=== PATIENT | male | born 1970 | race Caucasian/White ===

== ENCOUNTER 2017-04-05 12:30 | Emergency (ER) | payer OTHER ==
[2017-04-05 12:34] VITALS: TEMP 98; BMI 25.7
[2017-04-05] MEDS ORDERED: diazePAM 5 MG TABLET PO ONE (13:10)
[2017-04-05] MEDS ORDERED: diazePAM 5 MG TABLET ONE (13:20)
--- NOTE | 2017-04-05 14:49 | PDOC ---
History of Present Illness - General History Source: Patient Exam Limitations: No Limitations - History of Present Illness Initial Comments: 04/05/17 14:50 The patient is a 47 year old male, with a significant past medical history of HTN, HLD, Gout, Renal transplant who presents to the emergency department with neck pain that began 2 days ago. Patient describes L lateral neck pain, that began few days ago that is exacerbated with movement. Patient was seen at [facility] 2 days ago for the same complaint. Patient had negative neck Xrays and was discharged with muscle relaxers. Patient returns to to [facility] ED due to increasing pain. Patient denies any new weakness or numbness. He denies chest pain, headache or dizziness. He denies fever, chills, abdominal pain, nausea, vomit, diarrhea or constipation. He denies dysuria, frequency, urgency or hematuria. Allergies: Shellfish Past surgical history: Hernia repair, testicular surgery, Kidney transplant Social history: None PCP: None <Mary Valadez - Last Filed: 04/05/17 14:49> - General History Source: Patient Exam Limitations: No Limitations <Viktoria Reich - Last Filed: 04/05/17 15:12> - General Chief Complaint: Pain Stated Complaint: BACK PAIN Past History <Mary Valadez - Last Filed: 04/05/17 14:49> - Past Medical History HTN: Yes Hypercholesterolemia: Yes Other medical history: GOUT - Surgical History Abdominal Surgery: Yes (HERNIA, TESTICULAR) - Psycho/Social/Smoking Cessation Hx Suicidal Ideation: No Smoking History: Never smoked Information on smoking cessation initiated: No <Viktoria Reich - Last Filed: 04/05/17 15:12> - Past Medical History Allergies/Adverse Reactions: Allergies Allergy/AdvReac Type Severity Reaction Status Date / Time shellfish derived Allergy Verified 04/05/17 12:35 Home Medications: Ambulatory Orders Amlodipine Besylate [Norvasc -] 30 mg PO DAILY 04/05/17 Atenolol [Tenormin -] 25 mg PO DAILY 04/05/17 Azathioprine [Imuran] 50 mg PO DAILY 04/05/17 Cyclosporine [Sandimmune] 150 mg PO BID 04/05/17 Diazepam [Valium] 5 mg PO Q8H PRN #15 tablet MDD 3 04/05/17 Methocarbamol 500 mg PO QID PRN 04/05/17 Oxycodone HCl/Acetaminophen [Percocet 5-325 mg Tablet] 1 tab PO Q4H 04/05/17 Prednisone 5 mg PO DAILY 04/05/17 Simvastatin 20 mg PO DAILY 04/05/17 Review of Systems - Review of Systems Able to Perform ROS?: Yes Comments:: 04/05/17 14:50 GENERAL/CONSTITUTIONAL: No fever or chills. No weakness. HEAD, EYES, EARS, NOSE AND THROAT: No change in vision. No ear pain or discharge. No sore throat. GASTROINTESTINAL: No nausea, vomiting, diarrhea or constipation. GENITOURINARY: No dysuria, frequency, or change in urination. CARDIOVASCULAR: No chest pain or shortness of breath. RESPIRATORY: No cough, wheezing, or hemoptysis. MUSCULOSKELETAL: No joint or muscle swelling or pain. + L neck pain. No back pain. SKIN: No rash NEUROLOGIC: No headache, vertigo, loss of consciousness, or change in strength/ sensation. ENDOCRINE: No increased thirst. No abnormal weight change. HEMATOLOGIC/LYMPHATIC: No anemia, easy bleeding, or history of blood clots. ALLERGIC/IMMUNOLOGIC: No hives or skin allergy. <Mary Valadez - Last Filed: 04/05/17 14:49> *Physical Exam - Vital Signs Last Vital Signs Temp Pulse Resp BP Pulse Ox 98 F 112 H 18 125/90 98 04/05/17 12:31 04/05/17 12:31 04/05/17 12:31 04/05/17 12:31 04/05/17 12:31 - Physical Exam Comments: 04/05/17 14:50 GENERAL: Awake, alert, and fully oriented, in no acute distress HEAD: No signs of trauma EYES: PERRLA, EOMI, sclera anicteric, conjunctiva clear ENT: Auricles normal inspection, nares patent, Moist mucosa NECK: Normal ROM, supple, no lymphadenopathy, JVD, or masses LUNGS: Breath sounds equal, clear to auscultation bilaterally. No wheezes, and no crackles HEART: Regular rate and rhythm, normal S1 and S2, no murmurs, rubs or gallops ABDOMEN: Soft, nontender, normoactive bowel sounds. No guarding, no rebound. No masses EXTREMITIES: Normal range of motion, no edema. No clubbing or cyanosis. No cords, erythema, or tenderness. +Midline tenderness. +Trapezius muscle spasm. +5 /5 muscle strength. NEUROLOGICAL: Normal speech SKIN: Warm, Dry, normal turgor, no rashes or lesions noted. <Mary Valadez - Last Filed: 04/05/17 14:49> - Vital Signs Last Vital Signs Temp Pulse Resp BP Pulse Ox 98 F 112 H 18 125/90 98 04/05/17 12:31 04/05/17 12:31 04/05/17 12:31 04/05/17 12:31 04/05/17 12:31 <Viktoria Reich - Last Filed: 04/05/17 15:12> ED Treatment Course - Medications Given in the ED: ED Medications Discontinued Medications Generic Name Dose Route Start Last Admin Trade Name Freq PRN Reason Stop Dose Admin Diazepam 5 mg 04/05/17 13:10 04/05/17 13:22 Valium - PO 04/05/17 13:11 5 mg ONCE ONE Administration Oxycodone/Acetaminophen 1 combo 04/05/17 13:09 04/05/17 13:22 Percocet 5/325 - PO 04/05/17 13:10 1 combo ONCE ONE Administration <Mary Valadez - Last Filed: 04/05/17 14:49> - Medications Given in the ED: ED Medications Discontinued Medications Generic Name Dose Route Start Last Admin Trade Name Freq PRN Reason Stop Dose Admin Diazepam 5 mg 04/05/17 13:10 04/05/17 13:22 Valium - PO 04/05/17 13:11 5 mg ONCE ONE Administration Oxycodone/Acetaminophen 1 combo 04/05/17 13:09 04/05/17 13:22 Percocet 5/325 - PO 04/05/17 13:10 1 combo ONCE ONE Administration <Viktoria Reich - Last Filed: 04/05/17 15:12> Medical Decision Making - Medical Decision Making 04/05/17 14:42 47 yo male with h/o renal transplant here with /co left upper neck pain. has had for few days. has had in the past. was seen at outside ed for evaluation. given muslce relaxer but pain has persisted. on exam left trapezial spasm, no midline cervical spine tendernss. nuerologically intact. 5/5 upper and lower body strength. sensation intact throught plan pain control and muscle relaxer. 04/05/17 15:00 pt feeling much improved after valium and percocet. was prescribed robaxin, will re prescribe valium and successful alleviation of sxs. given nuerology referrala nd requesting rheumatology so given to pt for unrelated foot complaint. <Viktoria Reich - Last Filed: 04/05/17 15:12> *DC/Admit/Observation/Transfer - Attestations Scribe Attestion: 04/05/17 14:50 Documentation prepared by Mary Valadez, acting as medical collections specialist for Viktoria Reich MD <Mary Valadez - Last Filed: 04/05/17 14:49> - Discharge Dispostion Admit: No <Viktoria Reich - Last Filed: 04/05/17 15:12> Diagnosis at time of Disposition: Torticollis - Discharge Dispostion Disposition: HOME Condition at time of disposition: Improved - Prescriptions Prescriptions: Diazepam [Valium] 5 mg PO Q8H PRN #15 tablet MDD 3 PRN Reason: Back Pain - Referrals Referrals: Omar Arias MD [Staff Physician] - Rob Montgomery MD [Staff Physician] - - Patient Instructions Printed Discharge Instructions: Torticollis Additional Instructions: you can take valium 5 mg every 8 hours as needed for muscle spasm. follow up with a neurologist. call to schedule. you can see Dr Arias. you can take percocet one every 6 hours as needed for pain. return for any weakness, numbness or any concerns. Should you need a referral for a hooker up. you can followup with Dr. Saucedo, see referral information.
[2017-04-05 15:30] VITALS: BP 121/76; PULSE 70
== END 2017-04-05 15:34 | disposition home or self-care (01) ==
LOC: JER 12:30
DX: M43.6 Torticollis (principal); I10 Essential (primary) hypertension; E78.00 Pure hypercholesterolemia, unspecified; M10.9 Gout, unspecified; Z94.0 Kidney transplant status
CPT/HCPCS: 99282-25

== ENCOUNTER 2018-05-25 06:00 | Inpatient (IN) | payer OTHER ==
--- NOTE | 2018-05-25 07:39 | PDOC ---
History of Present Illness - General History Source: Patient Exam Limitations: No Limitations - History of Present Illness Initial Comments: 05/25/18 08:27 The patient is a 48 year old male, with a significant PMH of gout and HTN, who presents to the emergency department complaining of a gout attack that began this morning. The patient states he has been having swelling and pain to the right arm for the past 3 to 4 days that progressively worsened today. The patient mentions he had a kidney transplant 20 years ago and thinks pain is secondary to his medication. He is currently taking Prednisone 20 mg twice a day for the past 3 days for the pain, last dose was taken last night. The patient states he has had gout in arm before. The patient denies chest pain, shortness of breath, headache and dizziness. Denies fever, chills, nausea, vomit, diarrhea and constipation. Denies dysuria, frequency, urgency and hematuria. Allergies: Shellfish Past surgical history: Kidney transplant Social history: None reported PCP: None reported <My Cross - Last Filed: 05/25/18 08:27> <Steve Walker - Last Filed: 05/25/18 11:05> - General Chief Complaint: Pain, Acute Stated Complaint: PAIN,RT HAND Time Seen by Provider: 05/25/18 07:39 Past History <My Cross - Last Filed: 05/25/18 08:27> - Past Medical History COPD: No HTN: Yes Hypercholesterolemia: Yes - Surgical History Abdominal Surgery: Yes (HERNIA, TESTICULAR) - Suicide/Smoking/Psychosocial Hx Smoking History: Never smoked Hx Alcohol Use: No Drug/Substance Use Hx: No <Steve Walker - Last Filed: 05/25/18 11:05> - Past Medical History Allergies/Adverse Reactions: Allergies Allergy/AdvReac Type Severity Reaction Status Date / Time shellfish derived Allergy Verified 04/05/17 12:35 Home Medications: Ambulatory Orders Azathioprine [Imuran] 50 mg PO DAILY 04/05/17 Cyclosporine [Sandimmune] 150 mg PO BID 04/05/17 Prednisone 5 mg PO DAILY 04/05/17 Nifedipine ER [Procardia Xl -] 30 mg PO DAILY 05/25/18 Review of Systems - Review of Systems Able to Perform ROS?: Yes Comments:: 05/25/18 08:30 CONSTITUTIONAL: No fever, no chills, no fatigue EYES: No visual changes ENT: No ear pain, no sore throat CARDIOVASCULAR: No chest pain, no palpitations RESPIRATORY: No cough, no SOB GI: No abdominal pain, no nausea, no vomiting, no constipation, no diarrhea GENITOURINARY: No dysuria, no frequency, no hematuria MUSKULOSKELETAL: +Right arm swelling. No backpain. SKIN: No rash NEURO: No headache <TayMy albert - Last Filed: 05/25/18 08:27> *Physical Exam - Vital Signs Last Vital Signs Temp Pulse Resp BP Pulse Ox 97.8 F 75 19 133/101 H 100 05/25/18 06:05 05/25/18 06:05 05/25/18 06:05 05/25/18 06:05 05/25/18 06:05 - Physical Exam Comments: 05/25/18 08:30 CONSTITUTIONAL: Well-appearing; well-nourished; in no apparent distress HEAD: Normocephalic; atraumatic EYES: PERRL; EOM intact ENMT: External appears normal; normal oropharynx NECK: Supple; non-tender; no cervical lymphadenopathy CARD: Normal S1, S2; no murmurs, rubs, or gallops RESP: Normal chest excursion with respiration; breath sounds clear and equal bilaterally; no wheezes, rhonchi, or rales ABD: Soft, non-distended; non-tender; no palpable organomegaly, no palpable hernias SKIN: Warm, dry, no rash NEURO: No focal neurological deficiencies. <Tay,My - Last Filed: 05/25/18 08:27> - Vital Signs Last Vital Signs Temp Pulse Resp BP Pulse Ox 97.8 F 75 19 133/101 H 100 05/25/18 06:05 05/25/18 06:05 05/25/18 06:05 05/25/18 06:05 05/25/18 06:05 - Physical Exam Comments: 05/25/18 09:10 EXTR: Right hand: + Approximately 2 cm in diameter fluctuant soft tissue swelling to the dorsal aspect of the hand, just distal to the wrist joint, with surrounding erythema, tender to palpation; there is tenderness along the extensor tendon sheaths with pain on passive and active flexion and extension of digits 2 through 5; there is lesser tenderness at the wrist joint with pain on wrist flexion/extension; there is no proximal lymphadenopathy or evidence of lymphangitis. <Steve Walker - Last Filed: 05/25/18 11:05> ED Treatment Course - LABORATORY CBC & Chemistry Diagram: 05/25/18 08:00 05/25/18 08:00 - Medications Given in the ED: ED Medications Discontinued Medications Generic Name Dose Route Start Last Admin Trade Name Rupert PRN Reason Stop Dose Admin Morphine Sulfate 6 mg 05/25/18 07:48 05/25/18 08:25 Morphine Sulfate IVPUSH 05/25/18 07:49 6 mg ONCE ONE Administration <My Cross - Last Filed: 05/25/18 08:27> - LABORATORY CBC & Chemistry Diagram: 05/25/18 08:00 05/25/18 08:00 <Steve Walker - Last Filed: 05/25/18 11:05> Medical Decision Making - Medical Decision Making 05/25/18 09:12 Patient is a 48-year-old male status post renal transplant with history of gout who presents with atraumatic pain and swelling of the right hand/wrist for the past several days not effectively treated with by mouth prednisone-40 mg for 3 days and cultures and taken shortly prior to arrival. Differential diagnoses includes extensor sheath tenosynovitis versus gouty arthritis versus septic arthritis. Dr. Tay of orthopedic surgery consulted. Needle aspiration of the soft tissue mass was attempted. No fluid or blood was aspirated. Small amount of bleeding occurred which was controlled with direct pressure. I suspect extensive tenia synovitis. We'll obtain blood cultures. We'll administer ceftriaxone vancomycin. Will admit. <Steve Walker - Last Filed: 05/25/18 11:05> *DC/Admit/Observation/Transfer - Attestations Scribe Attestion: 05/25/18 08:31 Documentation prepared by [employer], acting as medical transcriptionist for Steve Walker MD. <My Cross - Last Filed: 05/25/18 08:27> - Discharge Dispostion Decision to Admit order: Yes - Attestations Physician Attestion: 05/25/18 09:09 The documentation was prepared by the scribe under my direct supervision. I have reviewed the documentation which correctly represents the findings, medical decision-making and critical action taken by me. <Steve Walker - Last Filed: 05/25/18 11:05> Diagnosis at time of Disposition: Tenosynovitis of hand - Discharge Dispostion Condition at time of disposition: Fair - Referrals Referrals: Tatum Soliz MD [Primary Care Provider] - - Patient Instructions - Post Discharge Activity
[2018-05-25] MEDS ORDERED: morphine SULFATE 4 MG/ML VIAL IVPUSH ONE (07:48)
[2018-05-25] MEDS ORDERED: morphine SULFATE 4 MG/ML VIAL ONE (08:04)
[2018-05-25] MEDS ORDERED: MORPHINE SULFATE 2 MG/ML VIAL ONE (08:05)
[2018-05-25] MEDS ORDERED: CEFTRIAXONE 2,000 MG in DEXTROSE 5%-WATER - 50 ML IVPB ONE (08:29)
[2018-05-25] MEDS ORDERED: VANCOMYCIN 1,500 MG in DEXTROSE 5%-WATER - 500 ML IVPB ONE (08:29)
[2018-05-25 08:30] LABS: BASO % 0.8 % (0-2.0); EOS % 0.8 % (0-4.5); HEMATOCRIT 41.8 % (35.4-49); HEMOGLOBIN 13.8 GM/dL (11.7-16.9); LYMPH % 29.8 % (8-40); MCH 29.7 pg (25.7-33.7); MCHC 33.1 g/dl (32.0-35.9); MEAN CELL VOLUME 89.9 fl (80-96); MEAN PLT VOLUME 10.8 fl (7.5-11.1); MONO % 9.2 % (3.8-10.2); NEUT % 59.4 % (42.8-82.8); PLATELET COUNT 217 K/MM3 (134-434); RBC 4.65 M/mm3 (4.00-5.60); RDW 13.7 % (11.9-15.9); WHITE BLOOD COUNT 16.6 K/mm3 (4.0-10.0)
[2018-05-25 08:43] LABS: INR 1.03 (0.83-1.09); PROTHROMBIN TIME (PATIENT) 12.1 SEC (9.7-13.0)
[2018-05-25] MEDS ORDERED: CEFTRIAXONE 2 GM/100 ML BAG IVPB ONE (09:08)
[2018-05-25 09:22] LABS: ALBUMIN 3.4 g/dl (3.4-5.0); ALK PHOS 86 U/L (45-117); ANION GAP 8 MMOL/L (8-16); BILIRUBIN,TOTAL 0.5 mg/dL (0.2-1); BLOOD UREA NITROGEN 21 mg/dL (7-18); CALCIUM 8.8 mg/dL (8.5-10.1); CHLORIDE 104 mmol/L (98-107); CO2 29 mmol/L (21-32); CREATININE 1.5 mg/dL (0.55-1.3); GLUCOSE,RANDOM 81 mg/dL (74-106); POTASSIUM 3.8 mmol/L (3.5-5.1); SGOT/AST 11 U/L (15-37); SGPT/ALT 19 U/L (13-61); SODIUM 140 mmol/L (136-145); TOT PROT 7.6 g/dl (6.4-8.2); URIC ACID 9.2 mg/dL (2.6-7.2)
--- NOTE | 2018-05-25 09:42 | CONSULT ---
Consult - text type - Consultation Consultation Note: FULL CONSULT DICTATED IMP: CELLULITIS RIGHT WRIST WITH SWELLING BUT NO COLLECTION PLAN: IV ABX PER ID, ANTI GOUT MEDICATION, ICE AND ELEVATION
[2018-05-25 09:44] LABS: ERYTHROCYTE SEDIMENTATION RATE 95 mm/hr (0-10)
--- NOTE | 2018-05-25 10:28 | CONS ---
DATE OF CONSULTATION: 05/25/2018 ORTHOPEDIC CONSULTATION/[facility] HISTORY OF PRESENT ILLNESS: Patient is a 48-year-old male with significant past medical history for gout, hypertension, complaining of increased pain in his right wrist with swelling. Denies any recent fall or trauma. He has been placed on colchicine by his PMD and yet the pain got worse. PAST MEDICAL HISTORY: Significant for a renal transplant 20 years ago and is taking prednisone now for this inflammation in his wrist as well. PHYSICAL EXAMINATION: Extremities: He has a swelling on the dorsum of his right hand with surrounding erythema just distal to the carpometacarpal joints over the 3rd ray with increased pain with extension of his fingers. No lymphangitis. Full range of motion of the shoulder, elbow. No tenderness in the deep spaces in the hand or any tenderness on the palmar surface. The area is very, very sensitive. IMAGING: X-rays reveal no fracture-dislocation, lytic or blastic lesions. LABORATORY DATA: Systemic white count is 16.6. Sedimentation rate is 95. His uric acid is 9.2. IMPRESSION: Probable cellulitis, possible collection in his right hand. RECOMMENDATIONS: Under sterile conditions I aspirated out the swelling in his hand and got back no fluid whatsoever. I therefore recommend the patient be continued on antigout medication as well as IV antibiotics as per Infectious Disease and we will follow this closely over the next few days . EMELINA GRAY M.D. [id number]
[2018-05-25 10:33] LABS: ANISOCYTOSIS 3+; MACROCYTOSIS 0; PLATELET ESTIMATE NORMAL
[2018-05-25] MEDS ORDERED: MORPHINE SULFATE 2 MG/ML VIAL IVPUSH PRN (11:02)
--- NOTE | 2018-05-25 13:09 | HP ---
CHIEF COMPLAINT: hand pain. PCP: HISTORY OF PRESENT ILLNESS: 48 yo M with pmhx of renal transplant (on immunosupressive therapy) , gout and HTN presents with 4 day history of right hand pain. He describes constant 8/10 pressure-like pain on dorsum of right hand that can radiate up forearm. Pain is worse with palpation and movement. No alleviating factors. Accompanied by subjective fevers. He states that 4 days ago he started with some pain and swelling of right hand and he called his lean specialist (;[facility]) who gave him prednisone 20mg BID. He thought that this was gouty flare. He was instructed that if pain did not improve to come to ED, which he did. In ED he was given percocet with some relief and was seen by Dr. Tay who aspirated the hand with only serosanguinus return, no abdi pus. He has had this same problem in past treated with IV abx and resolved. Denies CP, LEVI, SOB, abdominal pain, chills, nausea or vomiting. ER course was notable for: (1)Hand XRAY shows- no fracture/sublux/free air/lytic or blastic lesions. (+) vascular calcifications. (2)CBC shows WBC 16.6 (3)ESR-95 Recent Travel: PAST MEDICAL HISTORY:HTN and GOUT PAST SURGICAL HISTORY: Renal tranplant ([facility]) Social History: Smoking:never Alcohol:denies Drugs: denies Family History: Allergies shellfish derived Allergy (Verified 04/05/17 12:35) HOME MEDICATIONS: Home Medications Medication Instructions Recorded Azathioprine [Imuran] 50 mg PO DAILY 04/05/17 Cyclosporine [Sandimmune] 150 mg PO BID 04/05/17 Prednisone 5 mg PO DAILY 04/05/17 Nifedipine ER [Procardia Xl -] 30 mg PO DAILY 05/25/18 REVIEW OF SYSTEMS CONSTITUTIONAL: Absent: fever, chills, diaphoresis, generalized weakness, malaise, loss of appetite, weight change HEENT: Absent: rhinorrhea, nasal congestion, throat pain, throat swelling, difficulty swallowing, mouth swelling, ear pain, eye pain, visual changes CARDIOVASCULAR: Absent: chest pain, syncope, palpitations, irregular heart rate, lightheadedness , peripheral edema RESPIRATORY: Absent: cough, shortness of breath, dyspnea with exertion, orthopnea, wheezing, stridor, hemoptysis GASTROINTESTINAL: Absent: abdominal pain, abdominal distension, nausea, vomiting, diarrhea, constipation, melena, hematochezia GENITOURINARY: Absent: dysuria, frequency, urgency, hesitancy, hematuria, flank pain, genital pain MUSCULOSKELETAL: R HAND pain and swelling. Absent: myalgia, arthralgia, joint swelling, back pain, neck pain SKIN: Absent: rash, itching, pallor HEMATOLOGIC/IMMUNOLOGIC: Absent: easy bleeding, easy bruising, lymphadenopathy, frequent infections ENDOCRINE: Absent: unexplained weight gain, unexplained weight loss, heat intolerance, cold intolerance NEUROLOGIC: Absent: headache, focal weakness or paresthesias, dizziness, unsteady gait, seizure, mental status changes, bladder or bowel incontinence PSYCHIATRIC: Absent: anxiety, depression, suicidal or homicidal ideation, hallucinations. PHYSICAL EXAMINATION Vital Signs - 24 hr 05/25/18 05/25/18 05/25/18 06:05 09:21 11:46 Temperature 97.8 F 98.9 F Pulse Rate 75 Pulse Rate [ 65 Radial] Respiratory 19 18 Rate Blood Pressure 133/101 H Blood Pressure 100/66 142/95 [Left Arm] O2 Sat by Pulse 100 99 Oximetry (%) GENERAL: AAOx3, NAD HEAD: NCAT EYES: PERRLA, EOMI, conjunctiva clear. No lid lag. EARS, NOSE, THROAT:Moist mucous membranes. NECK: Supple without lymphadenopathy, JVD, or masses. LUNGS: CTAB. No wheezes, and no crackles. No accessory muscle use. HEART:RRR, normal S1 and S2 without murmur, rub or gallop. ABDOMEN: Soft, NTND,NABS, large vertical scar RLQ from transpant. no guarding, no rebound, no masses. No hepatomegaly or splenomegaly. MUSCULOSKELETAL: decreased ROM of R wrist. very tender with wrist flexion. No CVA tenderness. UPPER EXTREMITIES: 2+ pulses, warm, well-perfused. Erythema and induration right hand 5x5 cm LOWER EXTREMITIES: 2+ pulses, warm, well-perfused. No calf tenderness. No peripheral edema. NEUROLOGICAL: Cranial nerves II-XII intact. Normal speech. gait not observed. PSYCHIATRIC: Cooperative. Good eye contact. Appropriate mood and affect. SKIN: right hand erythema and induration. Laboratory Results - last 24 hr 10/31/18 10/31/18 10/31/18 08:00 08:00 08:00 WBC 16.6 H RBC 4.65 Hgb 13.8 Hct 41.8 MCV 89.9 MCH 29.7 MCHC 33.1 RDW 13.7 Plt Count 217 MPV 10.8 Absolute Neuts (auto) 9.9 H Neutrophils % 59.4 Neutrophils % (Manual) 44.4 Band Neutrophils % 0.0 Lymphocytes % 29.8 Lymphocytes % (Manual) 36.4 Monocytes % 9.2 Monocytes % (Manual) 12 H Eosinophils % 0.8 Eosinophils % (Manual) 0.0 Basophils % 0.8 Basophils % (Manual) 1.0 Myelocytes % (Man) 0 Promyelocytes % (Man) 0 Blast Cells % (Manual) 0 Nucleated RBC % 0 Metamyelocytes 0 Hypochromia 0 Platelet Estimate Normal Polychromasia 0 Poikilocytosis 0 Anisocytosis 3+ Microcytosis 3+ Macrocytosis 0 ESR 95 H PT with INR 12.10 INR 1.03 Sodium 140 Potassium 3.8 Chloride 104 Carbon Dioxide 29 Anion Gap 8 BUN 21 H Creatinine 1.5 H Creat Clearance w eGFR 50.38 Random Glucose 81 Uric Acid 9.2 H Calcium 8.8 Total Bilirubin 0.5 AST 11 L ALT 19 Alkaline Phosphatase 86 C-Reactive Protein 1.3 H Total Protein 7.6 Albumin 3.4 ASSESSMENT/PLAN: 48 yo M with pmhx of renal transplant (on immunosupressive therapy) , gout and HTN presents with 4 day history of right hand pain, admitted to med-surg for infective tenosynovitis requiring IV abx. Problem List - Problem (1) Tenosynovitis of hand Assessment/Plan: * Given Rocephin and Vanco in ED * will consult ID * possible need for further imaging. * Pending C/S from aspirate. * Repeat CBC in AM (2) S/P kidney transplant Assessment/Plan: Followed by transplant specialist in [facility] Dr. Fisher * Will continue immunosupressive therapy. * Azathioprine (Imuran -) 50 mg PO DAILY * Cyclosporine (Sandimmune) 150 mg PO BID * Prednisone (Deltasone -) 5 mg PO DAILY (3) HTN (hypertension) Assessment/Plan: Will continue home medications. * Cont. Nocardia. Visit type - Emergency Visit Emergency Visit: Yes ED Registration Date: 05/25/18 Care time: The patient presented to the Emergency Department on the above date and was hospitalized for further evaluation of their emergent condition. - New Patient This patient is new to me today: Yes Date on this admission: 05/25/18 - Critical Care Critical Care patient: No
[2018-05-25 13:12] VITALS: BMI 26.7
[2018-05-25] MEDS ORDERED: PNEUMOC 13-VAL CONJ-DIP CRM/PF 0.5 ML DISP.SYRIN IM ONE (13:45)
[2018-05-25] MEDS ORDERED: ACETAMINOPHEN 325 MG TABLET (FP) PO ONE (13:45)
[2018-05-25] MEDS ORDERED: oxyCODONE HCL 5 MG TABLET PO ONE (13:45)
[2018-05-25] MEDS ORDERED: predniSONE 20 MG TABLET (UD) PO ONE (16:27)
--- NOTE | 2018-05-25 16:29 | PN ---
Teaching Attending Note Name of Resident: Robbi Bailon ATTENDING PHYSICIAN STATEMENT I saw and evaluated the patient. I reviewed the resident's note and discussed the case with the resident. I agree with the resident's findings and plan as documented. SUBJECTIVE:48yo M with PMH s/p renal transplant 1997 on immunosupressant therapy , HTN and gout presented to the Er with R wrist pain. pain has been progressing and worsens with movement. subjective chills. called his mental retardation aide who recommended take pred 20mg BID for 3 days. felt some improvement but was not back to baseline. Took a dose of colchicine today. states he typically takes pred 20mg when he feels his joint are acting up with relief. has never responded to colchicine. denies Cp, SOB, night sweats, N/V/C/D has frequent flares 6-8/year which respond to steroids. saw a officer lieutenant in [place] in the past who gave him steroids but never followed up. OBJECTIVE: Last Vital Signs Temp Pulse Resp BP Pulse Ox 98.4 F 67 18 119/68 99 05/25/18 13:51 05/25/18 13:51 05/25/18 12:53 05/25/18 13:51 05/25/18 12:53 General NAD CV S1 S2 RRR no murmur/rub/gallops Lungs CTA B/L no wheezing/rales/rhonchi extremities R wrist dorsum is erythematous, warm and tender. refused passive ROM. unable to flex or extend the wrist. able to move all the joints, pulse intact. no other joints appears swollen at this itme ASSESSMENT AND PLAN: 48yo M with H s/p renal transplant 1997 on immunosupressant therapy, HTN and gout presented to the Er with R wrist pain. 1. R wrist pain- liekly gout. low suspicion for infection however due to immunosupressed state. Elevated Uric acid level. s/p joint aspiration of the wrist by Ortho who sent fluid off for analysis. Will give pred 40mg po daily x3 days. no response to colchicine. allopurinol dose interfere with immunosupressant medications and would need to verify with transplant doctor if can give after acute flare has ended as would benefit form urate lowering therapy. would empiric treatment for infection with leukocytosis (although this could be from steroid use). started on Vanco and Ceftriaxone. f/u Cx and fluid 2. HTN-controlled. cont home medications 3. 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 on immunosupressant therapy. nephro consult 4. DVT ppx- Hep sq
--- NOTE | 2018-05-25 16:33 | CON.ID ---
Consult Consult Specialty:: infectious disease Referred by:: hospitalist Reason for Consultation:: swelling right hand with pain - History of Present Illness Chief Complaint: pain and swelling right hand History of Present Illness: 48 yo man with history of renal transplant [address] [place], 8 years of gout he has been hospitalized 6 times in the last 8 yrs for gout usually his right knee, right ankle and right wrist he takes takes 20 mg prednisone and drinks alot of water when he feels like he is going to get a gout attack this usually works this happens every other month reports colchicine does not work for him no fevers, no trauma, no insect bites no travel no pets monagomous lives with and mother has not been able to work due to gout attacks s/p vancomycin and ceftriaxone in the ED this am - History Source History Provided By: Patient, Medical Record Limitations to Obtaining History: No Limitations - Past Medical History Cardio/Vascular: Yes: HTN Renal/: Yes: Other (history testicular torsion age 12) Rheumatology: Yes: Gout - Past Surgical History Past Surgical History: Yes: Hernia Repair, Kidney Transplant - Alcohol/Substance Use Hx Alcohol Use: No - Smoking History Smoking history: Never smoked - Social History Usual Living Arrangement: With Spouse ADL: Independent Place of : Other History of Recent Travel: Yes ( two months ago) Home Medications - Allergies Allergies/Adverse Reactions: Allergies Allergy/AdvReac Type Severity Reaction Status Date / Time shellfish derived Allergy Verified 04/05/17 12:35 - Home Medications Home Medications: Ambulatory Orders Azathioprine [Imuran] 50 mg PO DAILY 04/05/17 Cyclosporine [Sandimmune] 150 mg PO BID 04/05/17 Prednisone 5 mg PO DAILY 04/05/17 Nifedipine ER [Procardia Xl -] 30 mg PO DAILY 05/25/18 Family Disease History - Family Disease History Family History: Denies Review of Systems - Review of Systems Constitutional: reports: No Symptoms. denies: Fever Eyes: reports: No Symptoms HENT: reports: No Symptoms Neck: reports: No Symptoms Cardiovascular: reports: No Symptoms Respiratory: reports: No Symptoms Gastrointestinal: reports: No Symptoms Genitourinary: reports: No Symptoms Musculoskeletal: reports: Extremity Pain (right hand) Physical Exam Vital Signs: Vital Signs Temperature 98.4 F 05/25/18 13:51 Pulse Rate 67 05/25/18 13:51 Respiratory Rate 18 05/25/18 12:53 Blood Pressure 119/68 05/25/18 13:51 O2 Sat by Pulse Oximetry (%) 99 05/25/18 12:53 Constitutional: Yes: No Distress, Calm Eyes: Yes: Conjunctiva Clear, EOM Intact HENT: Yes: Atraumatic, Normocephalic. No: Thrush Neck: Yes: Supple, Trachea Midline Cardiovascular: Yes: Regular Rate and Rhythm Respiratory: Yes: Regular, CTA Bilaterally Gastrointestinal: Yes: Normal Bowel Sounds, Soft, Other (scr from renal transplant) ...Rectal Exam: Yes: Deferred Musculoskeletal: Yes: WNL Extremities: Yes: Other (right hand with swelling on the dorsum of the hand, decreased ROM of the fingers, mild erythema no lymphangetic spread, no axillary adenopathy small effusions both knees, and left ankle -nontender, no erythema) Psychiatric: Yes: Alert, Oriented Labs: CBC, BMP 05/25/18 08:00 05/25/18 08:00 blood cultures pending Laboratory Tests 05/25/18 08:00 Uric Acid 9.2 H Imaging - Results X-ray: Report Reviewed Problem List - Problems (1) Swelling of right hand Code(s): M79.89 - OTHER SPECIFIED SOFT TISSUE DISORDERS (2) S/P kidney transplant Code(s): Z94.0 - KIDNEY TRANSPLANT STATUS (3) History of gout Code(s): Z87.39 - PERSONAL HISTORY OF DISEASES OF THE MS SYS AND CONN TISS Assessment/Plan Immunocompromised host secondary to renal transplant suspect this is gout- he feels this is very typical for his prior episodes he received vanco/rocephin no history of MDRO he does not look toxic would continue rocephin, f/u blood cultures vancomycin trough in am urine gc/chlamydia NAAT consider rheumatology evaluation baseline creatinine is 1.5- s/p transplant- renal evaluation pending
[2018-05-25] MEDS ORDERED: azaTHIOprine 50 MG TABLET PO ONE (17:44)
--- NOTE | 2018-05-25 19:28 | CON.NEP ---
Consult Consult Specialty:: nephrology Referred by:: dr gonzalez Reason for Consultation:: azotemia / renal transplant - History of Present Illness Chief Complaint: right wrist pain and swelling History of Present Illness: esrd s/p renal transplant [address] [place] s creat is 1.4-1.5 c/o pain and swelling in right wrsit which is hot and warm to touch he recognizes this as a typical gouty attack as he has had in the past he gets recurrent attack he was treated with abx in er and arthrocentesis has been done serum creatine is 1.5 it is at his baseline - Past Medical History Cardio/Vascular: Yes: HTN Renal/: Yes: Other (history testicular torsion age 12) Rheumatology: Yes: Gout - Past Surgical History Past Surgical History: Yes: Hernia Repair, Kidney Transplant - Alcohol/Substance Use Hx Alcohol Use: No - Smoking History Smoking history: Never smoked - Social History Usual Living Arrangement: With Spouse ADL: Independent History of Recent Travel: Yes ( two months ago) Home Medications - Allergies Allergies/Adverse Reactions: Allergies Allergy/AdvReac Type Severity Reaction Status Date / Time shellfish derived Allergy Verified 04/05/17 12:35 - Home Medications Home Medications: Ambulatory Orders Azathioprine [Imuran] 50 mg PO DAILY 04/05/17 Cyclosporine [Sandimmune] 150 mg PO BID 04/05/17 Prednisone 5 mg PO DAILY 04/05/17 Nifedipine ER [Procardia Xl -] 30 mg PO DAILY 05/25/18 Nephrology Consult - Height Height: 5 ft 11 in - Weight Weight: 192 lb - BMI Body Mass Index (BMI): 26.7 - Lab Results CBC,BMP: CBC, BMP 05/25/18 08:00 05/25/18 08:00 Anion Gap: Anion Gap Anion Gap 8 MMOL/L (8-16) 05/25/18 08:00 - Physical Examination Vital Signs: Vital Signs Temperature 98.4 F 05/25/18 13:51 Pulse Rate 67 05/25/18 13:51 Respiratory Rate 18 05/25/18 12:53 Blood Pressure 119/68 05/25/18 13:51 O2 Sat by Pulse Oximetry (%) 99 05/25/18 12:53 Constitutional: Yes: Well Nourished, Obese Eyes: Yes: WNL, Conjunctiva Clear, EOM Intact HENT: Yes: WNL, Atraumatic, Normocephalic Neck: Yes: WNL, Supple, Trachea Midline Cardiovascular: Yes: WNL, Regular Rate and Rhythm Respiratory: Yes: WNL, Regular, CTA Bilaterally Gastrointestinal: Yes: WNL, Normal Bowel Sounds Renal/: Yes: WNL Musculoskeletal: Yes: Joint Swelling Extremities: Yes: Erythema Edema: No Peripheral Pulses WNL: No Neurological: Yes: WNL Psychiatric: Yes: WNL Assessment/Plan acute inflammtory arthritis probably acute gout, given the history of previous similar episodes s/p kidney transplant renal function is stab'e ensure hidration continue anti rejection regimen
[2018-05-25] MEDS: HEPARIN NA (PORCINE) 5,000 UNITS/ML 1ML VIAL SQ SCH (22:12)
[2018-05-26 07:18] LABS: BASO % 1.2 % (0-2.0); HEMATOCRIT 41.8 % (35.4-49); HEMOGLOBIN 13.6 GM/dL (11.7-16.9); LYMPH % 16.7 % (8-40); MCH 29.2 pg (25.7-33.7); MCHC 32.4 g/dl (32.0-35.9); MEAN CELL VOLUME 89.9 fl (80-96); MEAN PLT VOLUME 10.9 fl (7.5-11.1); MONO % 7.5 % (3.8-10.2); NEUT % 74.6 % (42.8-82.8); PLATELET COUNT 222 K/MM3 (134-434); RBC 4.65 M/mm3 (4.00-5.60); RDW 13.3 % (11.9-15.9); WHITE BLOOD COUNT 16.4 K/mm3 (4.0-10.0)
[2018-05-26 07:59] LABS: ALBUMIN 3.2 g/dl (3.4-5.0); ALK PHOS 87 U/L (45-117); ANION GAP 14 MMOL/L (8-16); BILIRUBIN,TOTAL 0.9 mg/dL (0.2-1); BLOOD UREA NITROGEN 25 mg/dL (7-18); CALCIUM 8.9 mg/dL (8.5-10.1); CHLORIDE 101 mmol/L (98-107); CO2 21 mmol/L (21-32); CREATININE 1.6 mg/dL (0.55-1.3); GLUCOSE,RANDOM 103 mg/dL (74-106); MAGNESIUM 1.9 mg/dL (1.8-2.4); POTASSIUM 4.8 mmol/L (3.5-5.1); SGOT/AST 11 U/L (15-37); SGPT/ALT 16 U/L (13-61); SODIUM 136 mmol/L (136-145); TOT PROT 7.6 g/dl (6.4-8.2)
[2018-05-26] MEDS ORDERED: SODIUM CHLORIDE 1,000 ML IV SCH (08:15)
[2018-05-26] MEDS ORDERED: predniSONE 5 MG TABLET (UD) PO SCH (10:00)
--- NOTE | 2018-05-26 10:40 | PN ---
Progress Note (short form) - Note Progress Note: Pt seen and examined. He states he is a 48 year old right hand dom male with a + h/o gout. He has had it in the hands and wrists before, and this feels the same as those acute gouty attacks. He has an acute attack every 8 months or so. He is not on maintenance meds. He denies recent trauma. Good urine output, not dehydrated. Doesn't eat red meat, or intake excessive ETOH. He states that he dramatically improved over the past 24 hours, with much improved swelling, ROM, and pain. PE Right hand and wrist still moderately swollen. Still with mild erythema. Right hand, wrist, fingers are all warm/hot. Only mildly tender to palpation, more so over dorsum of right hand. NVI. ` No fluid collection appreciated. No drainage. + still with global stiffness Labs WBC down slightly to 16.4 ESR 95 CRP 1.3 AVSS Wrist aspirate (very little fluid) no growth so far Xrays Right hand and wrist are normal. Imp Acute gouty attack, right hand and wrist, now much improved. Rec Continue antibiotic prophylaxis, and NSAIDS. Elevation. Can start to force active and passive ROM of the right wrist, fingers, thumb, hand. Will follow.
[2018-05-26] MEDS ORDERED: PT OWN MED DRAWER 7, Y5N ONE (11:14)
[2018-05-26] MEDS ORDERED: DEXTROSE 5%-WATER 100 ML IVPB ONE (11:19)
[2018-05-26] MEDS: HEPARIN NA (PORCINE) 5,000 UNITS/ML 1ML VIAL SQ SCH ×2 (11:25→21:51)
[2018-05-26] MEDS: NIFEdipine E.R. 30 MG TABLET (FP) PO SCH (11:25)
[2018-05-26] MEDS: predniSONE 20 MG TABLET (UD) PO SCH (11:25)
[2018-05-26] MEDS: azaTHIOprine 50 MG TABLET PO SCH (11:25)
[2018-05-26] MEDS: CEFTRIAXONE 2 GM in DEXTROSE 5%-WATER 100 ML IVPB SCH (11:26)
--- NOTE | 2018-05-26 12:59 | PN ---
Progress Note, Physician History of Present Illness: Pt seen and examined at bedside. He feels that his hand is getting better. He denies shortness of breath. He denies dysuria or hematuria. - Current Medication List Current Medications: Active Medications Azathioprine (Imuran -) 50 mg PO DAILY [facility] Last Admin: 05/26/18 11:25 Dose: 50 mg Cyclosporine 50 mg/ (Cyclosporine 100 mg) 150 mg PO BID [facility] Heparin Sodium (Porcine) (Heparin -) 5,000 unit SQ BID [facility] Last Admin: 05/26/18 11:25 Dose: 5,000 unit Ceftriaxone Sodium 2 gm/ (Dextrose) 100 mls @ 200 mls/hr IVPB DAILY [facility]; Protocol Last Admin: 05/26/18 11:26 Dose: 200 mls/hr Sodium Chloride (Normal Saline -) 1,000 mls @ 50 mls/hr IV ASDIR [facility] Stop: 05/27/18 08:10 Last Admin: 05/26/18 11:24 Dose: 50 mls/hr Nifedipine (Procardia Xl -) 30 mg PO DAILY [facility] Last Admin: 05/26/18 11:25 Dose: 30 mg Prednisone (Deltasone -) 40 mg PO DAILY [facility] Last Admin: 05/26/18 11:25 Dose: 40 mg - Objective Vital Signs: Vital Signs Temperature 98.7 F 05/26/18 05:06 Pulse Rate 61 05/26/18 05:06 Respiratory Rate 21 H 05/26/18 05:06 Blood Pressure 129/72 05/26/18 05:06 O2 Sat by Pulse Oximetry (%) 99 05/25/18 21:00 Constitutional: Yes: Calm Eyes: Yes: Conjunctiva Clear HENT: Yes: Atraumatic Cardiovascular: Yes: S1, S2 Respiratory: Yes: CTA Bilaterally Gastrointestinal: Yes: Soft Genitourinary: Yes: WNL, Other (graft soft and non tender) Extremities: Yes: Other (right wrist gout attack) Edema: No Integumentary: Yes: WNL Neurological: Yes: Oriented Psychiatric: Yes: Oriented Labs: CBC, BMP 05/26/18 06:30 05/26/18 06:30 INR, PTT INR 1.03 (0.83-1.09) 05/25/18 08:00 Problem List - Problems (1) HTN (hypertension) Code(s): I10 - ESSENTIAL (PRIMARY) HYPERTENSION Qualifiers: Hypertension type: renovascular hypertension Qualified Code(s): I15.0 - Renovascular hypertension (2) History of gout Code(s): Z87.39 - PERSONAL HISTORY OF DISEASES OF THE MS SYS AND CONN TISS (3) S/P kidney transplant Code(s): Z94.0 - KIDNEY TRANSPLANT STATUS (4) Tenosynovitis of hand Code(s): M65.9 - SYNOVITIS AND TENOSYNOVITIS, UNSPECIFIED Assessment/Plan Current Medications Generic Name Dose Route Start Last Admin Trade Name Freq PRN Reason Stop Dose Admin Azathioprine 50 mg 05/26/18 10:00 05/26/18 11:25 Imuran - PO 50 mg DAILY [facility] Administration Cyclosporine 50 mg/ 150 mg 05/26/18 22:00 Cyclosporine 100 mg PO BID [facility] Heparin Sodium (Porcine) 5,000 unit 05/25/18 22:00 05/26/18 11:25 Heparin - SQ 5,000 unit BID [facility] Administration Ceftriaxone Sodium 2 gm/ 100 mls @ 200 mls/hr 05/26/18 10:00 05/26/18 11:26 Dextrose IVPB 200 mls/hr DAILY [facility] Administration Protocol Sodium Chloride 1,000 mls @ 50 mls/hr 05/26/18 08:15 05/26/18 11:24 Normal Saline - IV 05/27/18 08:10 50 mls/hr ASDIR [facility] Administration Nifedipine 30 mg 05/26/18 10:00 05/26/18 11:25 Procardia Xl - PO 30 mg DAILY [facility] Administration Prednisone 40 mg 05/26/18 10:00 05/26/18 11:25 Deltasone - PO 40 mg DAILY [facility] Administration Impression 1. kidney transplant 2. CKD 3. HTN 4. gout Plan - cont with anti-rejection meds - pt will go back to 5 mg of prednisone after flair is resolved - will need rheum eval for gout maintenance - will follow - othro input appreciated - avoid nsaids if possible
--- NOTE | 2018-05-26 13:20 | PN ---
Teaching Attending Note Name of Resident: Phillip Connell ATTENDING PHYSICIAN STATEMENT I saw and evaluated the patient. I reviewed the resident's note and discussed the case with the resident. I agree with the resident's findings and plan as documented. SUBJECTIVE:pain is now resolved. ROM has improved. denies Cp, SOB, fever, chills , N/V/C/D OBJECTIVE: Last Vital Signs Temp Pulse Resp BP Pulse Ox 98.7 F 61 21 H 129/72 99 05/26/18 05:06 05/26/18 05:06 05/26/18 05:06 05/26/18 05:06 05/25/18 21:00 General NAD extremities R wrist dorsum is warm and swollen and erythema is now improved. able to extend 45 degrees. flex about 15 degrees. +pronation/suppination. ASSESSMENT AND PLAN: 48yo M with PMH s/p renal transplant 1997 on immunosupressant therapy, HTN and gout presented to the Er with R wrist pain. 1. R wrist pain- liekly gout. singificant improvement. will need to confirm if aspirate was sent for analysis or not as no results are seen. would cont Empiric abx with vanco and ceftriaxone until infection is ruled out. will cont pred 40mg at this time. wll need urate lowering therapy. will reach out to transplant specialist about its interaction with azathiprine. f/u Cx and fluid 2. HTN-controlled. cont home medications 3. 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 on immunosupressant therapy. nephro consult 4. DVT ppx- Hep sq 5. anticipate discharge in next 24H with continued improvement and negative cultures
--- NOTE | 2018-05-26 15:53 | PN ---
Physical Exam: SUBJECTIVE: Patient seen and examined at bedside. endorses pain in right hand much better. Eager to return home. OBJECTIVE: Vital Signs Period Temp Pulse Resp BP Sys/Villavicencio Pulse Ox Last 24 Hr 98.7 F-99.5 F 61-73 20-21 129-141/72-84 99 GENERAL: AAOx3, NAD HEAD:NVC/AT EYES: PERRA ENT: Ears normal, nares patent, oropharynx clear without exudates, moist mucous membranes. NECK: Trachea midline, full range of motion, supple. LUNGS: CTA B/L No wheezing rhonchi or rales HEART: RRR no MRG S1S2 ABDOMEN: Soft ND NT no HSM. Right abdominal surgical scar 2/2 Right renal transplant 1997. EXTREMITIES: DP Pulse 2+ B/L. Cyst dorsum R foot. Most likely 2/2 previous gout attack. NEUROLOGICAL: Cn 2-12 intact PSYCH: Normal mood, normal affect. SKIN: Warm, dry, normal turgor, no rashes or lesions noted Laboratory Results - last 24 hr 05/25/18 05/26/18 05/26/18 18:30 06:00 06:30 WBC 16.4 H RBC 4.65 Hgb 13.6 Hct 41.8 MCV 89.9 MCH 29.2 MCHC 32.4 RDW 13.3 Plt Count 222 MPV 10.9 Absolute Neuts (auto) 12.2 H Neutrophils % 74.6 D Lymphocytes % 16.7 D Monocytes % 7.5 Eosinophils % 0.0 D Basophils % 1.2 Nucleated RBC % 0 Sodium Potassium Chloride Carbon Dioxide Anion Gap BUN Creatinine Creat Clearance w eGFR Random Glucose Calcium Phosphorus Magnesium Total Bilirubin AST ALT Alkaline Phosphatase Total Protein Albumin Random Vancomycin 8.6 L C. trachomatis (ANAYA) Cancelled N. gonorrhoeae (ANAYA) Cancelled 05/26/18 06:30 WBC RBC Hgb Hct MCV MCH MCHC RDW Plt Count MPV Absolute Neuts (auto) Neutrophils % Lymphocytes % Monocytes % Eosinophils % Basophils % Nucleated RBC % Sodium 136 Potassium 4.8 Chloride 101 Carbon Dioxide 21 Anion Gap 14 BUN 25 H Creatinine 1.6 H Creat Clearance w eGFR 46.77 Random Glucose 103 Calcium 8.9 Phosphorus 5.0 H Magnesium 1.9 Total Bilirubin 0.9 AST 11 L ALT 16 Alkaline Phosphatase 87 Total Protein 7.6 Albumin 3.2 L Random Vancomycin C. trachomatis (ANAYA) N. gonorrhoeae (ANAYA) Active Medications Generic Name Dose Route Start Last Admin Trade Name Rupert PRN Reason Stop Dose Admin Azathioprine 50 mg 05/26/18 10:00 05/26/18 11:25 Imuran - PO 50 mg DAILY [facility] Administration Cyclosporine 50 mg/ 150 mg 05/26/18 22:00 Cyclosporine 100 mg PO BID [facility] Heparin Sodium (Porcine) 5,000 unit 05/25/18 22:00 05/26/18 11:25 Heparin - SQ 5,000 unit BID [facility] Administration Ceftriaxone Sodium 2 gm/ 100 mls @ 200 mls/hr 05/26/18 10:00 05/26/18 11:26 Dextrose IVPB 200 mls/hr DAILY [facility] Administration Protocol Sodium Chloride 1,000 mls @ 50 mls/hr 05/26/18 08:15 05/26/18 11:24 Normal Saline - IV 05/27/18 08:10 50 mls/hr ASDIR [facility] Administration Nifedipine 30 mg 05/26/18 10:00 05/26/18 11:25 Procardia Xl - PO 30 mg DAILY [facility] Administration Prednisone 40 mg 05/26/18 10:00 05/26/18 11:25 Deltasone - PO 40 mg DAILY [facility] Administration ASSESSMENT/PLAN: # Tenosynovitis of hand -Given Rocephin and Vanco in ED -Dr Fox on board -Wrist xray 05/25--> vascular calcifications. No fractures appreciated. -Pending C/S from aspirate. -Latest cbc--> wbc dec to 16.4. no anemia. -Currently receiving rocephin # S/P kidney transplant 1997 Followed by transplant specialist in [facility] Dr. Davon Mccallum-Transplant Surgeon -Will continue immunosupressive therapy. -Azathioprine (Imuran -) 50 mg PO DAILY -Cyclosporine (Sandimmune) 150 mg PO BID -Prednisone (Deltasone -) 40 mg PO DAILY -Dr Jung on board. CrCl 46.77. Ok to give Ulorich or Allopurinol. Spoke with sectrary in Dr mccallum's office. Have not recieved return call. Want to r/ o possible interaction with Uric acid lowering agents and immunospressant medications. Consider starting medication? # HTN (hypertension) -Procardia 30 mg po daily # FEN No Fluids Monitor electrolytes Regular Diet DVT ppx: Hep SQ TID Dispo: For D/C tomorrow am Visit type - Emergency Visit Emergency Visit: Yes ED Registration Date: 05/25/18 Care time: The patient presented to the Emergency Department on the above date and was hospitalized for further evaluation of their emergent condition. - New Patient This patient is new to me today: Yes Date on this admission: 05/26/18 - Critical Care Critical Care patient: No - Discharge Referral Referred to [facility] Med P.C.: No
--- NOTE | 2018-05-26 15:57 | PN ---
Progress Note (short form) - Note Progress Note: improving hand function Vital Signs Period Temp Pulse Resp BP Sys/Villavicencio Pulse Ox Last 24 Hr 98.7 F-99.5 F 61-73 20-21 129-141/72-84 99 cor-rrr lungs clear abd soft,nt ext less erythema of the right hand, swelling still present increased ROM CBC, BMP 05/26/18 06:30 05/26/18 06:30 Microbiology 05/25/18 08:50 Blood - Peripheral Venous Blood Culture - Preliminary NO GROWTH OBTAINED AFTER 24 HOURS, INCUBATION TO CONTINUE FOR 4 DAYS. 05/25/18 08:50 Blood - Peripheral Venous Blood Culture - Preliminary NO GROWTH OBTAINED AFTER 24 HOURS, INCUBATION TO CONTINUE FOR 4 DAYS. Current Medications Azathioprine (Imuran -) 50 mg PO DAILY [facility] Last Admin: 05/26/18 11:25 Dose: 50 mg Cyclosporine 50 mg/ (Cyclosporine 100 mg) 150 mg PO BID [facility] Heparin Sodium (Porcine) (Heparin -) 5,000 unit SQ BID [facility] Last Admin: 05/26/18 11:25 Dose: 5,000 unit Ceftriaxone Sodium 2 gm/ (Dextrose) 100 mls @ 200 mls/hr IVPB DAILY [facility]; Protocol Last Admin: 05/26/18 11:26 Dose: 200 mls/hr Sodium Chloride (Normal Saline -) 1,000 mls @ 50 mls/hr IV ASDIR [facility] Stop: 05/27/18 08:10 Last Admin: 05/26/18 11:24 Dose: 50 mls/hr Nifedipine (Procardia Xl -) 30 mg PO DAILY [facility] Last Admin: 05/26/18 11:25 Dose: 30 mg Prednisone (Deltasone -) 40 mg PO DAILY [facility] Last Admin: 05/26/18 11:25 Dose: 40 mg a/p suspected recurrent gout-improved on prednisone on rocephin- clinically improving, suspect leukocytosis is secondary to steroids s/p renal transplant Problem List - Problems (1) Swelling of right hand Code(s): M79.89 - OTHER SPECIFIED SOFT TISSUE DISORDERS (2) S/P kidney transplant Code(s): Z94.0 - KIDNEY TRANSPLANT STATUS (3) History of gout Code(s): Z87.39 - PERSONAL HISTORY OF DISEASES OF THE MS SYS AND CONN TISS
[2018-05-26] MEDS: CYCLOSPORINE PO SCH (21:52)
[2018-05-26 22:22] LABS: URINE APPEARANCE CLEAR; URINE BILIRUBIN NEGATIVE (<2.0 mg/dL); URINE COLOR LTYELLOW; URINE GLUCOSE (UA) NEGATIVE (NEGATIVE); URINE KETONE NEGATIVE (NEGATIVE); URINE LEUK ESTERASE NEGATIVE (NEGATIVE); URINE NITRITE NEGATIVE (NEGATIVE); URINE PROTEIN NEGATIVE (NEGATIVE); URINE UROBILINOGEN NEGATIVE mg/dL (0.2-1.0)
[2018-05-27 08:07] LABS: ANION GAP 9 MMOL/L (8-16); BLOOD UREA NITROGEN 31 mg/dL (7-18); CALCIUM 9.1 mg/dL (8.5-10.1); CHLORIDE 105 mmol/L (98-107); CO2 25 mmol/L (21-32); CREATININE 1.3 mg/dL (0.55-1.3); GLUCOSE,RANDOM 104 mg/dL (74-106); POTASSIUM 4.1 mmol/L (3.5-5.1); SODIUM 138 mmol/L (136-145)
[2018-05-27] MEDS ORDERED: PT OWN MED DRAWER 7, Y5N ONE (09:16)
[2018-05-27] MEDS ORDERED: DEXTROSE 5%-WATER 100 ML IVPB ONE (09:27)
--- NOTE | 2018-05-27 09:29 | PN ---
Physical Exam: SUBJECTIVE: Patient seen and examined at bedside. No acute events overnight. Endorses he is feeling better. Denies fever, chills, sob, chest pain, N/V. Eager to return home. OBJECTIVE: Vital Signs Period Temp Pulse Resp BP Sys/Villavicencio Pulse Ox Last 24 Hr 98 F-98.7 F 58-68 18-20 110-137/58-82 99 GENERAL: AAOx3, NAD HEAD:NVC/AT EYES: PERRA ENT: Ears normal, nares patent, oropharynx clear without exudates, moist mucous membranes. NECK: Trachea midline, full range of motion, supple. LUNGS: CTA B/L No wheezing rhonchi or rales HEART: RRR no MRG S1S2 ABDOMEN: Soft ND NT no HSM. Right abdominal surgical scar 2/2 Right renal transplant 1997. EXTREMITIES: DP Pulse 2+ B/L. Cyst dorsum R foot. Most likely 2/2 previous gout attack. Right Wrist less swollen, Full ROM, decreased pain. NEUROLOGICAL: CN 2-12 intact PSYCH: Normal mood, normal affect. SKIN: Warm, dry, normal turgor, no rashes or lesions noted Laboratory Results - last 24 hr 05/26/18 05/27/18 21:26 07:00 Sodium 138 Potassium 4.1 Chloride 105 Carbon Dioxide 25 Anion Gap 9 BUN 31 H Creatinine 1.3 Creat Clearance w eGFR 59.43 Random Glucose 104 Calcium 9.1 Urine Color Ltyellow Urine Appearance Clear Urine pH 5.0 Ur Specific [place] 1.013 Urine Protein Negative Urine Glucose (UA) Negative Urine Ketones Negative Urine Blood Negative Urine Nitrite Negative Urine Bilirubin Negative Urine Urobilinogen Negative Ur Leukocyte Esterase Negative Active Medications Generic Name Dose Route Start Last Admin Trade Name Freq PRN Reason Stop Dose Admin Azathioprine 50 mg 05/26/18 10:00 05/26/18 11:25 Imuran - PO 50 mg DAILY [facility] Administration Cyclosporine 50 mg/ 150 mg 05/26/18 22:00 05/26/18 21:52 Cyclosporine 100 mg PO 150 mg BID [facility] Administration Heparin Sodium (Porcine) 5,000 unit 05/25/18 22:00 05/26/18 21:51 Heparin - SQ 5,000 unit BID [facility] Administration Ceftriaxone Sodium 2 gm/ 100 mls @ 200 mls/hr 05/26/18 10:00 05/26/18 11:26 Dextrose IVPB 200 mls/hr DAILY [facility] Administration Protocol Nifedipine 30 mg 05/26/18 10:00 05/26/18 11:25 Procardia Xl - PO 30 mg DAILY [facility] Administration Prednisone 40 mg 05/26/18 10:00 05/26/18 11:25 Deltasone - PO 40 mg DAILY [facility] Administration ASSESSMENT/PLAN:
[2018-05-27] MEDS: predniSONE 20 MG TABLET (UD) PO SCH (09:33)
[2018-05-27] MEDS: azaTHIOprine 50 MG TABLET PO SCH (09:33)
[2018-05-27] MEDS: CYCLOSPORINE PO SCH (09:34)
[2018-05-27] MEDS: NIFEdipine E.R. 30 MG TABLET (FP) PO SCH (09:36)
[2018-05-27] MEDS: CEFTRIAXONE 2 GM in DEXTROSE 5%-WATER 100 ML IVPB SCH (09:36)
[2018-05-27] MEDS: HEPARIN NA (PORCINE) 5,000 UNITS/ML 1ML VIAL SQ SCH (09:41)
--- NOTE | 2018-05-27 10:09 | PN ---
Progress Note (short form) - Note Progress Note: Ortho Pt seen and examined- right hand/wrist much improved Selected Entries 05/27/18 05:46 Temperature 98 F Pulse Rate 58 L Respiratory 18 Rate Blood Pressure 126/58 L Laboratory Tests 05/26/18 06:30 WBC 16.4 H Hgb 13.6 Hct 41.8 Plt Count 222 decr swelling, decr erythema, decr pain, incr rom nvi a/p continue ulorich rom exercises elevation ok to d/c from ortho pov d/w Dr. Farrell
--- NOTE | 2018-05-27 11:49 | PN ---
Teaching Attending Note Name of Resident: Phillip Connell ATTENDING PHYSICIAN STATEMENT I saw and evaluated the patient. I reviewed the resident's note and discussed the case with the resident. I agree with the resident's findings and plan as documented. SUBJECTIVE:wrist pain has resolved. some mild swelling but not restricting ROM. denies CP, SOB, fever, chills, N/V/C/D OBJECTIVE: Last Vital Signs Temp Pulse Resp BP Pulse Ox 98 F 58 L 18 126/58 L 99 05/27/18 05:46 05/27/18 05:46 05/27/18 05:46 05/27/18 05:46 05/26/18 21:00 General NAD extremities R wrist dorsum has swelling on dorsal aspect but much improved. no longer tender or warm. full ROM of the wrist. ASSESSMENT AND PLAN: 48yo M with PMH s/p renal transplant 1997 on immunosupressant therapy, HTN and gout presented to the Er with R wrist pain. 1. R wrist pain- liekly gout. significant improvement. on pred 40mg day 6 total( took 3 days prior to arrival). will taper down to 20mg tomorow for a few days then to home dose of 5mg. will d/c abx as doubt infectious cause. awaiting to hear back from Transplant phsyician about interaction of allopurinol with home medications. as per renal his kidney function is safe for starting medication but will need to confirm first. pt states he will also try to reach out to him to determine if this can be started. has not responded to colchicine in the past. 2. HTN-controlled. cont home medications 3. 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 on immunosupressant therapy. nephro consult 4. DVT ppx- Hep sq 5. d/c home
[2018-05-27 12:18] VITALS: BP 130/77; PULSE 64; TEMP 98.1
--- NOTE | 2018-05-27 12:37 | PN ---
Progress Note, Physician History of Present Illness: Pt seen and examined at bedside. He is awake and alert. He says that he feels much better. - Current Medication List Current Medications: Active Medications Azathioprine (Imuran -) 50 mg PO DAILY [facility] Last Admin: 05/27/18 09:33 Dose: 50 mg Cyclosporine 50 mg/ (Cyclosporine 100 mg) 150 mg PO BID [facility] Last Admin: 05/27/18 09:34 Dose: 150 mg Heparin Sodium (Porcine) (Heparin -) 5,000 unit SQ BID [facility] Last Admin: 05/27/18 09:41 Dose: Not Given Nifedipine (Procardia Xl -) 30 mg PO DAILY [facility] Last Admin: 05/27/18 09:36 Dose: 30 mg Prednisone (Deltasone -) 40 mg PO DAILY [facility] Last Admin: 05/27/18 09:33 Dose: 40 mg - Objective Vital Signs: Vital Signs Temperature 98.1 F 05/27/18 10:00 Pulse Rate 64 05/27/18 10:00 Respiratory Rate 18 05/27/18 10:00 Blood Pressure 130/77 05/27/18 10:00 O2 Sat by Pulse Oximetry (%) 99 05/26/18 21:00 Constitutional: Yes: Calm Eyes: Yes: Conjunctiva Clear HENT: Yes: Atraumatic Cardiovascular: Yes: S1, S2 Respiratory: Yes: CTA Bilaterally Gastrointestinal: Yes: Soft Genitourinary: Yes: WNL Musculoskeletal: Yes: WNL Edema: No Neurological: Yes: Oriented Psychiatric: Yes: Oriented Labs: CBC, BMP 05/26/18 06:30 05/27/18 07:00 INR, PTT INR 1.03 (0.83-1.09) 05/25/18 08:00 Problem List - Problems (1) HTN (hypertension) Code(s): I10 - ESSENTIAL (PRIMARY) HYPERTENSION Qualifiers: Hypertension type: renovascular hypertension Qualified Code(s): I15.0 - Renovascular hypertension (2) History of gout Code(s): Z87.39 - PERSONAL HISTORY OF DISEASES OF THE MS SYS AND CONN TISS (3) S/P kidney transplant Code(s): Z94.0 - KIDNEY TRANSPLANT STATUS (4) Tenosynovitis of hand Code(s): M65.9 - SYNOVITIS AND TENOSYNOVITIS, UNSPECIFIED Assessment/Plan Current Medications Generic Name Dose Route Start Last Admin Trade Name Freq PRN Reason Stop Dose Admin Azathioprine 50 mg 05/26/18 10:00 05/27/18 09:33 Imuran - PO 50 mg DAILY KLARISSA Administration Cyclosporine 50 mg/ 150 mg 05/26/18 22:00 05/27/18 09:34 Cyclosporine 100 mg PO 150 mg BID KLARISSA Administration Heparin Sodium (Porcine) 5,000 unit 05/25/18 22:00 05/27/18 09:41 Heparin - SQ Not Given BID KLARISSA Nifedipine 30 mg 05/26/18 10:00 05/27/18 09:36 Procardia Xl - PO 30 mg DAILY KLARISSA Administration Prednisone 40 mg 05/26/18 10:00 05/27/18 09:33 Deltasone - PO 40 mg DAILY KLARISSA Administration Impression 1. kidney transplant 2. CKD 3. HTN 4. 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
--- NOTE | 2018-05-27 14:58 | DS ---
Physical Exam: SUBJECTIVE: Patient seen and examined at bedside. No acute events overnight. Endorses he is feeling better. Denies fever, chills, sob, chest pain, N/V. Eager to return home. OBJECTIVE: Vital Signs Period Temp Pulse Resp BP Sys/Villavicencio Pulse Ox Last 24 Hr 98 F-98.7 F 58-68 18-20 110-137/58-82 99 PHYSICAL EXAM GENERAL: AAOx3, NAD HEAD:NVC/AT EYES: PERRA ENT: Ears normal, nares patent, oropharynx clear without exudates, moist mucous membranes. NECK: Trachea midline, full range of motion, supple. LUNGS: CTA B/L No wheezing rhonchi or rales HEART: RRR no MRG S1S2 ABDOMEN: Soft ND NT no HSM. Right abdominal surgical scar 2/2 Right renal transplant 1997. EXTREMITIES: DP Pulse 2+ B/L. Cyst dorsum R foot. Most likely 2/2 previous gout attack. Right Wrist less swollen, Full ROM, decreased pain. NEUROLOGICAL: CN 2-12 intact PSYCH: Normal mood, normal affect. SKIN: Warm, dry, normal turgor, no rashes or lesions noted LABS Laboratory Results - last 24 hr 05/26/18 05/27/18 21:26 07:00 Sodium 138 Potassium 4.1 Chloride 105 Carbon Dioxide 25 Anion Gap 9 BUN 31 H Creatinine 1.3 Creat Clearance w eGFR 59.43 Random Glucose 104 Calcium 9.1 Urine Color Ltyellow Urine Appearance Clear Urine pH 5.0 Ur Specific Anselmo 1.013 Urine Protein Negative Urine Glucose (UA) Negative Urine Ketones Negative Urine Blood Negative Urine Nitrite Negative Urine Bilirubin Negative Urine Urobilinogen Negative Ur Leukocyte Esterase Negative HOSPITAL COURSE: Date of Admission:05/25/18 Pt was admitted to [facility] on 05/25/18 due to swelling and pain in his right wrist. Pt was found to have an increased white blood cell count of 16.6 and increased ESR of 95, C reactive protein 1.3. Pt's Uric acid level was 9.2. Pt was treated with You need to follow up with your transplant doctor about starting allopurinol as this could interact with your immunosupressive treatment and this is why it is not recommended until they approve this medication Start prednisone 20mg tomorrow and take for 3 days and then you can return to your usual dose of prednisone 5mg Follow up with your primary care doctor next week. Please also follow up with your Kidney Transplant Physician Dr Davon Mccallum. Please return to ED if you experience any chest pain, shortness of breath, worsening leg swelling and rash. Date of Discharge: 05/27/18 Discharge Summary Reason For Visit: TENOSYNOVITIS OF HAND Current Active Problems HTN (hypertension) (Acute) History of gout (Acute) S/P kidney transplant (Acute) Swelling of right hand (Acute) Tenosynovitis of hand (Acute) Condition: Improved - Instructions Diet, Activity, Other Instructions: You were admitted to [facility] on 05/25/18 due to swelling and pain in your right wrist and hand. You were found to have an increased white blood cell count and increased inflammatory markers. Your uric acid level was also elevated. Based on your clinical presentation, an acute Gout attack is most likely the explanation of your wrist swelling. You were treated with antibiotics and steroids. You need to follow up with your transplant doctor about starting allopurinol as this could interact with your immunosupressive treatment and this is why it is not recommended until they approve this medication Start prednisone 20mg tomorrow and take for 3 days and then you can return to your usual dose of prednisone 5mg Follow up with your primary care doctor next week. Please also follow up with your Kidney Transplant Physician Dr Davon Mccallum. Please return to ED if you experience any chest pain, shortness of breath, worsening leg swelling and rash. Referrals: Tatum Soliz MD [Primary Care Provider] - Disposition: HOME - Home Medications Comprehensive Discharge Medication List: Ambulatory Orders Azathioprine [Imuran] 50 mg PO DAILY 04/05/17 Cyclosporine [Sandimmune] 50 mg PO BID 04/05/17 Prednisone 5 mg PO DAILY 04/05/17 Nifedipine ER [Procardia Xl -] 30 mg PO DAILY 05/25/18 Cyclosporine 50 mg PO BID 05/26/18 Simvastatin 10 mg PO DAILY 05/26/18 Prednisone 20 mg PO DAILY #6 tablet 05/27/18 - Discharge Referral Referred to [facility] Med [facility].C.: No
--- NOTE | 2018-05-27 15:00 | PN ---
Progress Note (short form) - Note Progress Note: much improved ROM normal Vital Signs Period Temp Pulse Resp BP Sys/Villavicencio Pulse Ox Last 24 Hr 98 F-98.4 F 58-68 18-20 110-130/58-77 99 cor-rrr lungs clear abd soft,nt ext much less smelling dorsum of hand no erythema CBC, BMP 05/26/18 06:30 05/27/18 07:00 Microbiology 05/25/18 08:50 Blood - Peripheral Venous Blood Culture - Preliminary NO GROWTH OBTAINED AFTER 48 HOURS, INCUBATION TO CONTINUE FOR 3 DAYS. 05/25/18 08:50 Blood - Peripheral Venous Blood Culture - Preliminary NO GROWTH OBTAINED AFTER 48 HOURS, INCUBATION TO CONTINUE FOR 3 DAYS. a/p suspected recurrent gout-improved on prednisone agree d/c rocephin rheumatology f/u as outpt clinically improving, suspect leukocytosis is secondary to steroids s/p renal transplant Problem List - Problems (1) Swelling of right hand Code(s): M79.89 - OTHER SPECIFIED SOFT TISSUE DISORDERS (2) S/P kidney transplant Code(s): Z94.0 - KIDNEY TRANSPLANT STATUS (3) History of gout Code(s): Z87.39 - PERSONAL HISTORY OF DISEASES OF THE MS SYS AND CONN TISS
== END 2018-05-27 15:40 | disposition home or self-care (01) | DRG 383 ==
LOC: JER 06:00 → JERBED 11:05 → J6S 12:36
PROVIDERS: ADMIT Internal Medicine; ATTEND Internal Medicine
DX: L03.113 Cellulitis of right upper limb (principal); Z94.0 Kidney transplant status; M10.9 Gout, unspecified; I12.9 Hypertensive chronic kidney disease with stage 1 through stage 4 chronic kidney disease, or unspecified chronic kidney disease; N18.9 Chronic kidney disease, unspecified; Z87.39 Personal history of other diseases of the musculoskeletal system and connective tissue; M19.90 Unspecified osteoarthritis, unspecified site
CPT/HCPCS: 36415; 73110-TC-RT-FY; 80048; 80053; 81003; 83735; 84100; 84550; 85025; 85610; 85651; 86140; 87040; 87491; 87591; 90670; 99284-25; G0480; J1644; J7030; J7502

== ENCOUNTER 2018-06-06 23:10 | Emergency (ER) | payer OTHER ==
[2018-06-06 23:15] VITALS: BP 129/89; PULSE 81; TEMP 98.3; BMI 26.4
--- NOTE | 2018-06-07 00:38 | PDOC ---
History of Present Illness - General Chief Complaint: Pain Stated Complaint: GOUT IN LT FOOT Time Seen by Provider: 06/07/18 00:26 History Source: Patient Exam Limitations: No Limitations - History of Present Illness Initial Comments: 06/07/18 03:24 Best Contact: PCP:Dr. Arron Soliz Pmhx: Gout Pshx: 1997, right kidney transplant from his brother Allergies:NKDA FH:0 Social Hx: Cigarettes/ denies Alcohol/ denies Drugs/ denies 48-year-old male presents to the emergency department complaining of pain to the medial posterior aspect of his right ankle 2 days. Pain is described as 5/ 10 aching nonradiating intermittent discomfort. The pain is exacerbated on touch and movement and there are no alleviating factors. Patient states he was recently treated for gout to his right hand and was admitted to the hospital. Patient denies extremity numbness or tingling sensation, fever, chills, nausea/ vomiting, chest pain, shortness of breath. Past History - Past Medical History Allergies/Adverse Reactions: Allergies Allergy/AdvReac Type Severity Reaction Status Date / Time shellfish derived Allergy Verified 06/06/18 23:15 Home Medications: Ambulatory Orders Azathioprine [Imuran] 50 mg PO DAILY 04/05/17 Cyclosporine [Sandimmune] 50 mg PO BID 04/05/17 Prednisone 5 mg PO DAILY 04/05/17 Nifedipine ER [Procardia Xl -] 30 mg PO DAILY 05/25/18 Simvastatin 10 mg PO DAILY 05/26/18 Prednisone 20 mg PO DAILY #6 tablet 05/27/18 Anemia: No Asthma: No Cancer: No Cardiac Disorders: No CVA: (nn) COPD: No CHF: No Dementia: No Diabetes: No GI Disorders: No Disorders: Yes (Kidney transplant) HTN: Yes Hypercholesterolemia: Yes Liver Disease: No Seizures: No Thyroid Disease: No - Surgical History Abdominal Surgery: Yes (HERNIA, TESTICULAR) Appendectomy: No Cardiac Surgery: No Cholecystectomy: No Lung Surgery: No Neurologic Surgery: No Orthopedic Surgery: No - Suicide/Smoking/Psychosocial Hx Smoking History: Never smoked Hx Alcohol Use: No Drug/Substance Use Hx: No Review of Systems - Review of Systems Able to Perform ROS?: Yes Comments:: 06/07/18 03:29 CONSTITUTIONAL: Absent: fever, chills, diaphoresis, generalized weakness, malaise, loss of appetite HEENT: Absent: rhinorrhea, nasal congestion, throat pain, throat swelling, difficulty swallowing, mouth swelling, ear pain, eye pain, visual Changes CARDIOVASCULAR: Absent: chest pain, loss of consciousness, palpitations, irregular heart rate, peripheral edema RESPIRATORY: Absent: cough, shortness of breath, dyspnea with exertion, orthopnea, wheezing, stridor, hemoptysis GASTROINTESTINAL: Absent: abdominal pain, abdominal distension, nausea, vomiting, diarrhea, constipation, melena, hematochezia GENITOURINARY: Absent: dysuria, frequency, urgency, hesitancy, hematuria, flank pain, genital pain MUSCULOSKELETAL: +pain to medial posterior ankle Absent: myalgia, arthralgia, joint swelling SKIN: Absent: rash, itching, pallor HEMATOLOGIC/IMMUNOLOGIC: Absent: easy bleeding, easy bruising, lymphadenopathy, frequent infections ENDOCRINE: Absent: unexplained weight gain, unexplained weight loss, heat intolerance, cold intolerance NEUROLOGIC: Absent: headache, focal weakness or paresthesias, dizziness, unsteady gait, seizure, mental status changes, bladder or bowel incontinence PSYCHIATRIC: Absent: anxiety, depression, suicidal or homicidal ideation, hallucinations. Is the patient limited [place] proficient: No *Physical Exam - Vital Signs Last Vital Signs Temp Pulse Resp BP Pulse Ox 98.3 F 81 18 129/89 98 06/06/18 23:11 06/06/18 23:11 06/06/18 23:11 06/06/18 23:11 06/06/18 23:11 - Physical Exam Comments: 06/07/18 03:29 GENERAL: Well developed, well nourished. Awake and alert. No acute distress. HEENT: Normocephalic, atraumatic. PERRLA, EOMI. No conjunctival pallor. Sclera are non- icteric. Moist mucous membranes. Oropharynx is clear. NECK: Supple. Full ROM. No JVD. Carotid pulses 2+ and symmetric, without bruits. No thyromegaly. No lymphadenopathy. CARDIOVASCULAR: Regular rate and rhythm. No murmurs, rubs, or gallops. Distal pulses are 2+ and symmetric. PULMONARY: No evidence of respiratory distress. Lungs clear to auscultation bilaterally. No wheezing, rales or rhonchi. ABDOMINAL: Soft. Non-tender. Non-distended. No rebound or guarding. No organomegaly. Normoactive bowel sounds. MUSCULOSKELETAL Normal range of motion at all joints. No bony deformities or tenderness. No CVA tenderness. EXTREMITIES: Right ankle F.R.O.M>, 2+pedal pulse, slight swelling, neg obv deformities No cyanosis. No clubbing. No edema. No calf tenderness. SKIN: Warm and dry. Normal capillary refill. No rashes. No jaundice. NEUROLOGICAL: Alert, awake, appropriate. Cranial nerves 2-12 intact. No deficits to light touch and temperature in face, upper extremities and lower extremities. No motor deficits in the in face, upper extremities and lower extremities. Normoreflexic in the upper and lower extremities. Normal speech. Toes are down- going bilaterally. Gait is normal without ataxia. PSYCHIATRIC: Cooperative. Good eye contact. Appropriate mood and affect. ED Treatment Course - LABORATORY CBC & Chemistry Diagram: 06/07/18 02:05 06/07/18 02:05 *DC/Admit/Observation/Transfer Diagnosis at time of Disposition: Gout of right foot Qualifiers: Gout etiology: unspecified cause Chronicity: acute Qualified Code(s): M10.9 - Gout, unspecified - Discharge Dispostion Disposition: HOME Condition at time of disposition: Stable Decision to Admit order: No - Referrals Referrals: Tatum Soliz MD [Primary Care Provider] - - Patient Instructions Printed Discharge Instructions: DI for Gout Additional Instructions: Follow-up with your physician Take the prednisone as prescribed Used pain medication sparingly Return back to the ER for severe/persistent or worsening symptoms - Post Discharge Activity
[2018-06-07] MEDS ORDERED: morphine CARPU-JECT 4 MG/1 ML DISP.SYRIN IVPUSH ONE (00:53)
[2018-06-07] MEDS ORDERED: predniSONE 20 MG TABLET (UD) PO ONE (00:58)
[2018-06-07] MEDS ORDERED: predniSONE 20 MG TABLET (UD) ONE (01:58)
[2018-06-07 02:27] LABS: BASO % 1.1 % (0-2.0); EOS % 0.5 % (0-4.5); HEMATOCRIT 38.8 % (35.4-49); HEMOGLOBIN 13.1 GM/dL (11.7-16.9); LYMPH % 31.1 % (8-40); MCH 30.2 pg (25.7-33.7); MCHC 33.6 g/dl (32.0-35.9); MEAN CELL VOLUME 89.7 fl (80-96); MEAN PLT VOLUME 10.4 fl (7.5-11.1); MONO % 8.3 % (3.8-10.2); PLATELET COUNT 230 K/MM3 (134-434); RBC 4.33 M/mm3 (4.00-5.60); RDW 13.8 % (11.9-15.9)
[2018-06-07 02:55] LABS: ALBUMIN 3.2 g/dl (3.4-5.0); ALK PHOS 81 U/L (45-117); ANION GAP 7 MMOL/L (8-16); BILIRUBIN,TOTAL 0.4 mg/dL (0.2-1); BLOOD UREA NITROGEN 24 mg/dL (7-18); CALCIUM 9.1 mg/dL (8.5-10.1); CHLORIDE 103 mmol/L (98-107); CO2 29 mmol/L (21-32); CREATININE 1.6 mg/dL (0.55-1.3); GLUCOSE,RANDOM 131 mg/dL (74-106); POTASSIUM 4.3 mmol/L (3.5-5.1); SGOT/AST 14 U/L (15-37); SGPT/ALT 19 U/L (13-61); SODIUM 139 mmol/L (136-145); TOT PROT 7.2 g/dl (6.4-8.2); URIC ACID 8.5 mg/dL (2.6-7.2)
== END 2018-06-07 03:49 | disposition home or self-care (01) ==
LOC: JER 23:10
PROC: 3E033NZ Introduction of Analgesics, Hypnotics, Sedatives into Peripheral Vein, Percutaneous Approach (ICD-10-PCS; principal; 2018-06-06)
DX: M10.9 Gout, unspecified (principal); I10 Essential (primary) hypertension; E78.00 Pure hypercholesterolemia, unspecified; Z94.0 Kidney transplant status
CPT/HCPCS: 36415; 80053; 84550; 85025; 99282-25

== ENCOUNTER 2018-07-17 13:26 | Emergency (ER) | payer OTHER ==
[2018-07-17 13:59] VITALS: BP 117/82; PULSE 71; TEMP 98.1; BMI 26.4
[2018-07-17] MEDS ORDERED: BUPIVACAINE HCL/PF (5 MG/ML) 30 ML VIAL IJ ONE (14:23)
[2018-07-17] MEDS ORDERED: methylPREDNISolone ACET (DEPO) 80 MG/1 ML VIAL IAR ONE (14:23)
[2018-07-17] MEDS ORDERED: LIDOCAINE HCL 1%, 10 MG/ML (50 mL VIAL) SQ ONE (14:23)
--- NOTE | 2018-07-17 14:35 | PDOC ---
History of Present Illness - General Chief Complaint: Pain Stated Complaint: PAIN Time Seen by Provider: 07/17/18 14:08 - History of Present Illness Initial Comments: 07/17/18 14:34 48-year-old male with past medical history for renal transplant presents for evaluation of acute gouty attack of his left knee. He states he sees a undergraduate advisor last week at some point to inject him with steroid but his symptoms never improved. He comes in requesting a prescription for Percocet Past History - Past Medical History Allergies/Adverse Reactions: Allergies Allergy/AdvReac Type Severity Reaction Status Date / Time shellfish derived Allergy Verified 07/17/18 13:56 Home Medications: Ambulatory Orders Azathioprine [Imuran] 50 mg PO DAILY 04/05/17 Cyclosporine [Sandimmune] 50 mg PO BID 04/05/17 Prednisone 5 mg PO DAILY 04/05/17 Nifedipine ER [Procardia Xl -] 30 mg PO DAILY 05/25/18 Simvastatin 10 mg PO DAILY 05/26/18 Prednisone 20 mg PO DAILY #6 tablet 05/27/18 predniSONE [Deltasone -] 40 mg PO DAILY #4 tablet 06/07/18 Allopurinol [Zyloprim -] 100 mg PO DAILY 07/17/18 Methylprednisolone [Medrol Dose Mehdi] 4 mg PO ASDIR #21 tablet 07/17/18 Anemia: No Asthma: No Cancer: No Cardiac Disorders: No CVA: (nn) COPD: No CHF: No Dementia: No Diabetes: No GI Disorders: No Disorders: Yes (Kidney transplant) HTN: Yes Hypercholesterolemia: Yes Liver Disease: No Seizures: No Thyroid Disease: No Other medical history: gout - Surgical History Abdominal Surgery: Yes (HERNIA, TESTICULAR) Appendectomy: No Cardiac Surgery: No Cholecystectomy: No Lung Surgery: No Neurologic Surgery: No Orthopedic Surgery: No - Immunization History Immunization Up to Date: Yes - Suicide/Smoking/Psychosocial Hx Smoking History: Never smoked Hx Alcohol Use: No Drug/Substance Use Hx: No Review of Systems - Review of Systems Constitutional: No: Fever Musculoskeletal: Yes: Joint Pain *Physical Exam - Vital Signs Last Vital Signs Temp Pulse Resp BP Pulse Ox 98.1 F 71 18 117/82 99 07/17/18 13:56 07/17/18 13:56 07/17/18 13:56 07/17/18 13:56 07/17/18 13:56 - Physical Exam Comments: 07/17/18 14:34 Left knee skin color and temperature are normal range of motion is limited. There is a moderate-sized intra-articular effusion. He has no gross sensorimotor deficits is neurovascularly intact Moderate Sedation - Procedure Monitoring Vital Signs: Procedure Monitoring Vital Signs Temperature 98.1 F 07/17/18 13:56 Pulse Rate 71 07/17/18 13:56 Respiratory Rate 18 07/17/18 13:56 Blood Pressure 117/82 07/17/18 13:56 O2 Sat by Pulse Oximetry (%) 99 07/17/18 13:56 Medical Decision Making - Medical Decision Making 07/17/18 14:35 My plan is to anesthetize his knee aspirate McGarrity fluid and given intra- articular injection of half percent Marcaine. Patient did have a steroid injection last week which was unhelpful. I will not treat him with narcotics anti-inflammatories and not option 07/17/18 14:58 Under aseptic technique 40 mL of cera [place] is fluid was aspirated from the left knee 10 mL of half percent Marcaine was injected intra-articularly. A dry sterile dressing was placed as well as a compressive Ariel wrap. This was tolerated well. 07/17/18 15:02 Of note the patient is out of his usual dose of prednisone. I will start him on a Medrol Dosepak and he will follow-up with his undergraduate advisor for further treatment. *DC/Admit/Observation/Transfer Diagnosis at time of Disposition: Gout of left knee - Discharge Dispostion Disposition: HOME Condition at time of disposition: Improved Decision to Admit order: No - Referrals Referrals: Tatum Soliz MD [Primary Care Provider] - - Patient Instructions Printed Discharge Instructions: Gout, DI for Gout, Higher Vitamin C Intake Associated With Lower Risk of Gout Additional Instructions: Please follow-up with your undergraduate advisor as well as her primary care physician in one to 2 days for further evaluation and treatment options and return to the emergency room should symptoms worsen or go unresolved. You underwent a therapeutic aspiration of your left knee today and a long-acting anesthetic was used to help with your pain. This should last about a day. He may take Tylenol as directed for pain. Avoid anti-inflammatories. Continue with your current medication regimen. - Post Discharge Activity
[2018-07-17 17:12] LABS: SYNOVIAL FLUID RBC 1588 /mm3
[2018-07-17 19:02] LABS: SYNOVIAL FLUID LYMPHOCYTES 14 %; SYNOVIAL FLUID MACROPHAGES 29 %; SYNOVIAL FLUID MONOCYTES 2 %; SYNOVIAL FLUID NEUTROPHILS 55 %; SYNOVIAL FLUID SOURCE SYNOVIAL FLUID
[2018-07-18 10:59] LABS: CRYSTALS,SYNOVIAL FLUID POSITIVE
== END 2018-07-17 15:26 | disposition home or self-care (01) ==
LOC: JERFT 13:26
PROC: 0S9D3ZZ Drainage of Left Knee Joint, Percutaneous Approach (ICD-10-PCS; principal; 2018-07-17)
PROC: 3E0U3BZ Introduction of Anesthetic Agent into Joints, Percutaneous Approach (ICD-10-PCS; 2018-07-17)
DX: M10.062 Idiopathic gout, left knee (principal); M25.462 Effusion, left knee
CPT/HCPCS: 87070; 87075; 87205; 89051; 89060; 99281-25

== ENCOUNTER 2018-07-18 05:28 | Emergency (ER) | payer OTHER ==
[2018-07-18] MEDS ORDERED: INDOMETHACIN 50 MG CAPSULE PO ONE (05:48)
--- NOTE | 2018-07-18 05:48 | PDOC ---
Attending Attestation - Resident Resident Name: Luis Zhneg - ED Attending Attestation I have performed the following: I have examined & evaluated the patient, The case was reviewed & discussed with the resident, I agree w/resident's findings & plan - HPI HPI: 07/18/18 05:54 Pt went to his bag liner and got a knee intraarticular injection. Came with pain to the ER yesterday. He had fluid in the knee that was tapped in our ER. Blood and WBC, some crystals, but the lab is pending determination of what the crystals are. Today pt returns with knee pain. He will have basic labs and uric acid levels and he will have a GC culture sent to r/o gonorrhea infection - Physicial Exam PE: 07/18/18 05:56 Agree with resident exam. 07/18/18 19:57 Pt has right knee pain at the medial aspect. He has no redness, minimal swelling and sightly increased warmth at the knee. It doesn't appear to be infected/cellulitic, though he has pain with ranging of the knee. Pt is afebrile here. - Medical Decision Making 07/18/18 19:59 Pt will be signed out to the day team. All labs are pending.
[2018-07-18 05:53] VITALS: BMI 26.4
--- NOTE | 2018-07-18 06:47 | PDOC ---
History of Present Illness - General Chief Complaint: Pain, Acute Stated Complaint: L LEG PAIN Time Seen by Provider: 07/18/18 05:47 History Source: Patient - History of Present Illness Initial Comments: 07/18/18 06:48 48-year-old male with past medical history for renal transplant presents for evaluation of acute gouty attack of his left knee. He states he sees a planning director last week at some point to inject him with steroid but his symptoms never improved. He came yesterday to our ED asking for percocet,as he got one in the past, instead got a injection of Marcaine. Complains today that his pain keep coming back and that Allopurinol and colchicine do not work. Past History - Past Medical History Allergies/Adverse Reactions: Allergies Allergy/AdvReac Type Severity Reaction Status Date / Time shellfish derived Allergy Verified 07/17/18 13:56 Home Medications: Ambulatory Orders Azathioprine [Imuran] 50 mg PO DAILY 04/05/17 Cyclosporine [Sandimmune] 50 mg PO BID 04/05/17 Prednisone 5 mg PO DAILY 04/05/17 Nifedipine ER [Procardia Xl -] 30 mg PO DAILY 05/25/18 Simvastatin 10 mg PO DAILY 05/26/18 Prednisone 20 mg PO DAILY #6 tablet 05/27/18 predniSONE [Deltasone -] 40 mg PO DAILY #4 tablet 06/07/18 Allopurinol [Zyloprim -] 100 mg PO DAILY 07/17/18 Methylprednisolone [Medrol Dose Mehdi] 4 mg PO ASDIR #21 tablet 07/17/18 Anemia: No Asthma: No Cancer: No Cardiac Disorders: No CVA: (nn) COPD: No CHF: No Dementia: No Diabetes: No GI Disorders: No Disorders: Yes (Kidney transplant) HTN: Yes Hypercholesterolemia: Yes Liver Disease: No Seizures: No Thyroid Disease: No - Surgical History Abdominal Surgery: Yes (HERNIA, TESTICULAR) Appendectomy: No Cardiac Surgery: No Cholecystectomy: No Lung Surgery: No Neurologic Surgery: No Orthopedic Surgery: No - Immunization History Immunization Up to Date: Yes - Suicide/Smoking/Psychosocial Hx Smoking History: Never smoked Have you smoked in the past 12 months: No Information on smoking cessation initiated: No Hx Alcohol Use: No Drug/Substance Use Hx: No Review of Systems - Review of Systems Able to Perform ROS?: Yes Is the patient limited [place] proficient: No Constitutional: No: Symptoms Reported HEENTM: No: Symptoms Reported Respiratory: No: Symptoms reported Cardiac (ROS): No: Symptoms Reported ABD/GI: No: Symptoms Reported : No: Symptoms Reported Musculoskeletal: Yes: See HPI, Gout, Joint Pain Integumentary: No: Symptoms Reported Neurological: No: Symptoms reported All Other Systems: Reviewed and Negative *Physical Exam - Vital Signs Last Vital Signs Temp Pulse Resp BP Pulse Ox 97.4 F L 88 18 107/64 98 07/18/18 05:49 07/18/18 05:49 07/18/18 05:49 07/18/18 05:49 07/18/18 05:49 - Physical Exam General Appearance: Yes: Nourished, Appropriately Dressed, Moderate Distress HEENT: positive: EOMI, JUSTIN, Normal ENT Inspection Respiratory/Chest: positive: Lungs Clear, Normal Breath Sounds. negative: Chest Tender, Respiratory Distress Cardiovascular: positive: Regular Rhythm, Regular Rate, S1, S2 Gastrointestinal/Abdominal: positive: Normal Bowel Sounds, Flat, Soft. negative : Tender Musculoskeletal: positive: Normal Inspection. negative: CVA Tenderness Extremity: positive: Other (left tender slightly swollen knee, not erythematous. ) Integumentary: positive: Normal Color, Dry, Warm Neurologic: positive: Fully Oriented, Alert, Normal Mood/Affect, Normal Response Moderate Sedation - Procedure Monitoring Vital Signs: Procedure Monitoring Vital Signs Temperature 97.4 F L 07/18/18 05:49 Pulse Rate 88 07/18/18 05:49 Respiratory Rate 18 07/18/18 05:49 Blood Pressure 107/64 07/18/18 05:49 O2 Sat by Pulse Oximetry (%) 98 07/18/18 05:49 ED Treatment Course - LABORATORY CBC & Chemistry Diagram: 07/18/18 06:30 07/18/18 06:30 - Medications Given in the ED: ED Medications Discontinued Medications Generic Name Dose Route Start Last Admin Trade Name Freq PRN Reason Stop Dose Admin Indomethacin 50 mg 07/18/18 05:48 07/18/18 06:44 Indocin - PO 07/18/18 05:49 50 mg ONCE ONE Administration Medical Decision Making - Medical Decision Making 07/18/18 07:39 48m with pmh of gout presents to the Ed with left knee gout flare up. Gout vs septic knee vs gonorrhea arthritis Basic labs ordered. Patient given indomethacin. PAtient signed out to Dr. Marquez. *DC/Admit/Observation/Transfer Diagnosis at time of Disposition: Gout - Referrals Referrals: Tatum Soliz MD [Primary Care Provider] - - Patient Instructions - Post Discharge Activity
[2018-07-18 06:48] LABS: BASO % 1.1 % (0-2.0); EOS % 1.5 % (0-4.5); HEMOGLOBIN 13.4 GM/dL (11.7-16.9); LYMPH % 21.7 % (8-40); MCH 29.7 pg (25.7-33.7); MCHC 32.8 g/dl (32.0-35.9); MEAN CELL VOLUME 90.5 fl (80-96); MEAN PLT VOLUME 10.8 fl (7.5-11.1); MONO % 7.5 % (3.8-10.2); NEUT % 68.2 % (42.8-82.8); PLATELET COUNT 218 K/MM3 (134-434); RBC 4.53 M/mm3 (4.00-5.60); RDW 13.8 % (11.9-15.9)
[2018-07-18 08:44] LABS: GLUCOSE,RANDOM 106 mg/dL (74-106)
[2018-07-18 08:45] LABS: ALBUMIN 3.4 g/dl (3.4-5.0); ANION GAP 9 MMOL/L (8-16); BILIRUBIN,TOTAL 0.7 mg/dL (0.2-1); BLOOD UREA NITROGEN 21 mg/dL (7-18); CALCIUM 8.7 mg/dL (8.5-10.1); CHLORIDE 104 mmol/L (98-107); CO2 26 mmol/L (21-32); CREATININE 1.7 mg/dL (0.55-1.3); POTASSIUM 4.6 mmol/L (3.5-5.1); SGOT/AST 15 U/L (15-37); SGPT/ALT 18 U/L (13-61); SODIUM 139 mmol/L (136-145); TOT PROT 7.6 g/dl (6.4-8.2)
[2018-07-18] MEDS ORDERED: predniSONE 20 MG TABLET (UD) PO ONE (09:05)
--- NOTE | 2018-07-18 09:13 | PDOC ---
*Physical Exam - Vital Signs Last Vital Signs Temp Pulse Resp BP Pulse Ox 97.4 F L 88 18 107/64 98 07/18/18 05:49 07/18/18 05:49 07/18/18 05:49 07/18/18 05:49 07/18/18 05:49 - Physical Exam Comments: GENERAL: Awake, alert, and fully oriented, in no acute distress HEAD: No signs of trauma, normocephalic, atraumatic EYES: EOMI, sclera anicteric, conjunctiva clear ENT: oropharynx clear without exudates. Moist mucosa NECK: Normal ROM, supple LUNGS: No distress, speaks full sentences, clear to auscultation bilaterally HEART: Regular rate and rhythm, normal S1 and S2, no murmurs, rubs or gallops, peripheral pulses normal and equal bilaterally. ABDOMEN: Soft, nontender, normoactive bowel sounds. No guarding, no rebound. No masses EXTREMITIES : L knee mildly swollen, bandaid applied to lateral aspect of patellar, very slightly erythematous, warm to the touch, tenderness to palpation NEUROLOGICAL: Cranial nerves II through XII grossly intact. Normal speech, no focal sensorimotor deficits SKIN: Warm, Dry, normal turgor, no rashes or lesions noted <Norma Marquez - Last Filed: 07/18/18 10:27> - Vital Signs Last Vital Signs Temp Pulse Resp BP Pulse Ox 98.0 F 78 18 135/74 98 07/18/18 10:16 07/18/18 10:16 07/18/18 10:16 07/18/18 10:16 07/18/18 10:16 <Eloise Reese - Last Filed: 07/18/18 20:04> ED Treatment Course - LABORATORY CBC & Chemistry Diagram: 07/18/18 06:30 07/18/18 06:30 - ADDITIONAL ORDERS Additional order review: Laboratory Results 07/18/18 07/18/18 06:30 06:30 Sodium 139 Potassium 4.6 Chloride 104 Carbon Dioxide 26 Anion Gap 9 BUN 21 H Creatinine 1.7 H Creat Clearance w eGFR 43.61 Random Glucose 106 Calcium 8.7 Total Bilirubin 0.7 AST 15 ALT 18 C-Reactive Protein 4.0 H Total Protein 7.6 Albumin 3.4 07/18/18 06:30 RBC 4.53 MCV 90.5 MCHC 32.8 RDW 13.8 MPV 10.8 Neutrophils % 68.2 Lymphocytes % 21.7 D Monocytes % 7.5 Eosinophils % 1.5 D Basophils % 1.1 - Medications Given in the ED: ED Medications Discontinued Medications Generic Name Dose Route Start Last Admin Trade Name Freq PRN Reason Stop Dose Admin Indomethacin 50 mg 07/18/18 05:48 07/18/18 06:44 Indocin - PO 07/18/18 05:49 50 mg ONCE ONE Administration <Norma Marquez - Last Filed: 07/18/18 10:27> - LABORATORY CBC & Chemistry Diagram: 07/18/18 06:30 07/18/18 06:30 - ADDITIONAL ORDERS Additional order review: Laboratory Results 07/18/18 07/18/18 07/18/18 06:30 06:30 06:30 Sodium 139 Potassium 4.6 Chloride 104 Carbon Dioxide 26 Anion Gap 9 BUN 21 H Creatinine 1.7 H Creat Clearance w eGFR 43.61 Random Glucose 106 Uric Acid 8.9 H Calcium 8.7 Total Bilirubin 0.7 AST 15 ALT 18 Alkaline Phosphatase 92 C-Reactive Protein 4.0 H Total Protein 7.6 Albumin 3.4 07/18/18 06:30 RBC 4.53 MCV 90.5 MCHC 32.8 RDW 13.8 MPV 10.8 Neutrophils % 68.2 Lymphocytes % 21.7 D Monocytes % 7.5 Eosinophils % 1.5 D Basophils % 1.1 - RADIOLOGY Radiology Studies Ordered: Category Date Time Status KNEE 2 POS-LEFT [RAD] Stat Radiology 07/18/18 05:48 Completed - Medications Given in the ED: ED Medications Discontinued Medications Generic Name Dose Route Start Last Admin Trade Name Freq PRN Reason Stop Dose Admin Indomethacin 50 mg 07/18/18 05:48 07/18/18 06:44 Indocin - PO 07/18/18 05:49 50 mg ONCE ONE Administration Prednisone 40 mg 07/18/18 09:05 07/18/18 10:01 Deltasone - PO 07/18/18 09:06 40 mg ONCE ONE Administration <Eloise Reese - Last Filed: 07/18/18 20:04> Medical Decision Making - Medical Decision Making 07/18/18 09:06 Patient signed out by Dr. Zheng. In short patient with gout flare on L knee, with tap of synovial fluid yesterday and pending crystal read. Patient received indomethacin here and takes prednisone 40mg daily. Patient was prescribed prednisone yesterday, however unable to go to pharmacy to pick it up. Last prednisone taken was 5mg 2 days ago. ED Course: 07/18/18 09:17 Patient reports feeling better, desires prednisone dose here. <Norma Marquez - Last Filed: 07/18/18 10:27> - Medical Decision Making 07/18/18 20:03 I was not present when decision was made to discharge the patient home. <Eloise Reese - Last Filed: 07/18/18 20:04> *DC/Admit/Observation/Transfer <Norma Marquez - Last Filed: 07/18/18 10:27> <Eloise Reese - Last Filed: 07/18/18 20:04> Diagnosis at time of Disposition: Gout - Discharge Dispostion Disposition: HOME - Referrals Referrals: Tatum Soliz MD [Primary Care Provider] - - Patient Instructions Additional Instructions: You were seen in the ED for complaints of L knee pain. In the ED you were evaluated with labwork. Your results were largely unremarkable. There does not appear to be an acute need for immediate hospitalization. You are advised to follow up with your Primary Care Physician within 1 week. Please take your prednisone that was prescribed yesterday as indicated. Return to the ED immediately if you experience worsening L knee pain, swelling or redness of the joint, fever, inability to bear weight or walk, chest pain, shortness of breath or gout pain involving multiple joints. - Post Discharge Activity
[2018-07-18 09:20] LABS: ALK PHOS 92 U/L (45-117)
[2018-07-18] MEDS ORDERED: predniSONE 20 MG TABLET (UD) ONE (10:01)
[2018-07-18 10:17] VITALS: BP 135/74; PULSE 78; TEMP 98
== END 2018-07-18 10:17 | disposition home or self-care (01) ==
LOC: JER 05:28
DX: M10.062 Idiopathic gout, left knee (principal); I10 Essential (primary) hypertension; Z94.0 Kidney transplant status
CPT/HCPCS: 36415; 73560-TC-LT-FY; 80053; 84550; 85025; 85651; 86140; 87491; 87591; 99282-25

== ENCOUNTER 2019-02-01 07:57 | Emergency (ER) | payer OTHER ==
[2019-02-01 08:14] VITALS: TEMP 98.5; BMI 24.4
[2019-02-01] MEDS ORDERED: morphine SULFATE 4 MG/ML VIAL ONE (08:57)
[2019-02-01] MEDS ORDERED: predniSONE 20 MG TABLET (UD) ONE (09:11)
[2019-02-01] MEDS ORDERED: morphine CARPU-JECT 4 MG/1 ML DISP.SYRIN IVPUSH ONE (09:11)
[2019-02-01] MEDS ORDERED: predniSONE 20 MG TABLET (UD) PO ONE (09:12)
[2019-02-01 10:13] LABS: BASO % 0.5 % (0-2.0); EOS % 0.7 % (0-4.5); HEMATOCRIT 35.8 % (35.4-49); HEMOGLOBIN 12.3 GM/dL (11.7-16.9); LYMPH % 29.1 % (8-40); MCH 33.5 pg (25.7-33.7); MCHC 34.2 g/dl (32.0-35.9); MEAN CELL VOLUME 97.8 fl (80-96); MEAN PLT VOLUME 10.3 fl (7.5-11.1); MONO % 8.8 % (3.8-10.2); NEUT % 60.9 % (42.8-82.8); PLATELET COUNT 282 K/MM3 (134-434); RBC 3.66 M/mm3 (4.00-5.60); RDW 15.3 % (11.9-15.9); WHITE BLOOD COUNT 10.9 K/mm3 (4.0-10.0)
[2019-02-01 10:40] LABS: ALBUMIN 3.2 g/dl (3.4-5.0); BILIRUBIN,TOTAL 0.4 mg/dL (0.2-1); BLOOD UREA NITROGEN 14.6 mg/dL (7-18); CALCIUM 9.1 mg/dL (8.5-10.1); CREATININE 1.3 mg/dL (0.55-1.3); POTASSIUM 4.5 mmol/L (3.5-5.1)
--- NOTE | 2019-02-01 14:57 | PDOC ---
Documentation entered by Beata Franks SCRIBE, acting as scribe for Rosa Valenzuela MD. Rosa Valenzuela MD: This documentation has been prepared by the Golden monae Sammi, SCRIBE, under my direction and personally reviewed by me in its entirety. I confirm that the documentation accurately reflects all work, treatment, procedures, and medical decision making performed by me. History of Present Illness - General Chief Complaint: Pain Stated Complaint: GOUT ATTACK Time Seen by Provider: 02/01/19 08:18 History Source: Patient Exam Limitations: No Limitations - History of Present Illness Initial Comments: 02/01/19 09:13 The patient is a 48 year old male, with a significant PMH of gout and renal transplant(1997), who presents to the emergency department for evaluation of 3 days of progressive right knee and right foot pain. The patient reports trouble sleeping due to the pain. He states he took Prednisone, 20mg Wednesday night and 15mg Wednesday night. Pt states this feels exactly like his previous gout pain. States his symptoms always improve with prednisone 40mg. He can not take colchicine or NSAIDs 2/2 to his renal transplant. The patient denies fevers , chills, chest pain, SOB, headache, dizziness, nausea, vomiting, constipation, diarrhea, or urinary changes. Past History - Past Medical History Allergies/Adverse Reactions: Allergies Allergy/AdvReac Type Severity Reaction Status Date / Time shellfish derived Allergy Verified 02/01/19 10:30 Home Medications: Ambulatory Orders Azathioprine [Imuran] 50 mg PO DAILY 04/05/17 Cyclosporine [Sandimmune] 50 mg PO BID 04/05/17 Prednisone 5 mg PO DAILY 04/05/17 Nifedipine ER [Procardia Xl -] 30 mg PO DAILY 05/25/18 Prednisone 20 mg PO DAILY #6 tablet 05/27/18 Allopurinol [Zyloprim -] 100 mg PO DAILY 07/17/18 Rosuvastatin [Crestor -] 10 mg PO DAILY 02/01/19 Anemia: No Asthma: No Cancer: No Cardiac Disorders: No CVA: (nn) COPD: No CHF: No Dementia: No Diabetes: No GI Disorders: No Disorders: Yes (Kidney transplant) HTN: Yes Hypercholesterolemia: Yes Liver Disease: No Seizures: No Thyroid Disease: No - Surgical History Abdominal Surgery: Yes (HERNIA, TESTICULAR) Appendectomy: No Cardiac Surgery: No Cholecystectomy: No Lung Surgery: No Neurologic Surgery: No Orthopedic Surgery: No - Immunization History Immunization Up to Date: Yes - Suicide/Smoking/Psychosocial Hx Smoking History: Unknown if ever smoked Have you smoked in the past 12 months: No Hx Alcohol Use: No Drug/Substance Use Hx: No Review of Systems - Review of Systems Comments:: 02/01/19 09:17 GENERAL/CONSTITUTIONAL: No fever or chills. No weakness. HEAD, EYES, EARS, NOSE AND THROAT: No change in vision. No ear pain or discharge. No sore throat. GASTROINTESTINAL: No nausea, vomiting, diarrhea or constipation. GENITOURINARY: No dysuria, frequency, or change in urination. CARDIOVASCULAR: No chest pain or shortness of breath. RESPIRATORY: No cough, wheezing, or hemoptysis. MUSCULOSKELETAL: (+)right knee pain and swelling. No neck or back pain. SKIN: No rash NEUROLOGIC: No headache, vertigo, loss of consciousness, or change in strength/ sensation. ALLERGIC/IMMUNOLOGIC: No hives or skin allergy. *Physical Exam - Vital Signs Last Vital Signs Temp Pulse Resp BP Pulse Ox 98.5 F 84 30 H 116/74 99 02/01/19 08:12 02/01/19 08:12 02/01/19 08:12 02/01/19 08:12 02/01/19 08:12 - Physical Exam Comments: 02/01/19 09:20 GENERAL: Awake, alert, and fully oriented, in no acute distress but appears uncomfortable HEAD: No signs of trauma EYES: PERRLA, EOMI, sclera anicteric, conjunctiva clear ENT: Oropharynx clear without exudates. Moist mucosa NECK: Normal ROM, supple, no lymphadenopathy, JVD, or masses LUNGS: Breath sounds equal, clear to auscultation bilaterally. No wheezes, and no crackles HEART: Regular rate and rhythm, normal S1 and S2, no murmurs, rubs or gallops ABDOMEN: Soft, nontender, normoactive bowel sounds. No guarding, no rebound. No masses EXTREMITIES: (+)diffuse tenderness to palpation of medial aspect of right knee. FROM at right knee but with pain. (+)Mild diffuse edema of right knee. No palpable effusions. No warmth or erythema to the knee. +ttp to R first metatarsal. 2+peripheral pulses NEUROLOGICAL: Normal speech, cranial nerves intact, equal strength and sensation b/l. Gait deferred SKIN: Warm, Dry, normal turgor, no rashes or lesions noted. ED Treatment Course - LABORATORY CBC & Chemistry Diagram: 02/01/19 09:45 02/01/19 09:11 - ADDITIONAL ORDERS Additional order review: Laboratory Results 02/01/19 09:11 Sodium 142 Potassium 4.5 Chloride 104 Carbon Dioxide 32 Anion Gap 6 L BUN 14.6 Creatinine 1.3 Est GFR (CKD-EPI)AfAm 75.84 Est GFR (CKD-EPI)NonAf 65.43 Random Glucose 84 Calcium 9.1 Total Bilirubin 0.4 AST 9 L ALT 20 Alkaline Phosphatase 83 Total Protein 7.0 Albumin 3.2 L 02/01/19 09:45 RBC 3.66 L MCV 97.8 H MCHC 34.2 RDW 15.3 D MPV 10.3 Neutrophils % 60.9 Lymphocytes % 29.1 D Monocytes % 8.8 Eosinophils % 0.7 Basophils % 0.5 - Medications Given in the ED: ED Medications Discontinued Medications Generic Name Dose Route Start Last Admin Trade Name Freq PRN Reason Stop Dose Admin Morphine Sulfate 4 mg 02/01/19 09:11 02/01/19 09:10 Morphine Injection - IVPUSH 02/01/19 09:12 4 mg ONCE ONE Administration Prednisone 40 mg 02/01/19 09:12 02/01/19 09:10 Deltasone - PO 02/01/19 09:13 40 mg ONCE ONE Administration Medical Decision Making - Medical Decision Making 02/01/19 14:50 48yo M hx of gout, renal transplant presents to the ED with R knee and R foot pain that he states is consistent with gout Vitals wnl Exam with diffuse ttp to R knee but FROM - joint not warm or erythematous. No systemic signs of infection so low likelihood septic joint No effusions on bedside sono or R knee to tap Pt is feeling significantly better with IV morphine and prednisone 40mg He is ambulating in ED with steady gait Will give course of steroids for DC He is clinically stable for DC home I discussed the physical exam findings, ancillary test results and final diagnoses with the patient. I answered all of the patient's questions. The patient was satisfied with the care received and felt comfortable with the discharge plan and treatment plan. The patient will call their primary care physician within 24 hours to arrange follow-up and will return to the Emergency Department with any new, persistent or worsening symptoms. *DC/Admit/Observation/Transfer Diagnosis at time of Disposition: Gout flare, Foot pain, right, Knee pain, right - Discharge Dispostion Disposition: HOME Condition at time of disposition: Improved - Referrals - Patient Instructions Printed Discharge Instructions: DI for Gout Additional Instructions: Follow up with your primary doctor in 1-2 days Take the prednisone as prescribed Return to the emergency department if you have any new, worsening or concerning symptoms - Post Discharge Activity - Attestations Physician Attestion: 02/01/19 14:57 I, Dr. Rosa Valenzuela MD, attest that this document has been prepared under my direction and personally reviewed by me in its entirety. I further attest, that it accurately reflects all work, treatment, procedures and medical decision -making performed by me.
[2019-02-01 15:14] VITALS: BP 108/76; PULSE 78
== END 2019-02-01 15:15 | disposition home or self-care (01) ==
LOC: JER 07:57
PROC: 3E033NZ Introduction of Analgesics, Hypnotics, Sedatives into Peripheral Vein, Percutaneous Approach (ICD-10-PCS; principal; 2019-02-01)
DX: M10.9 Gout, unspecified (principal); M25.561 Pain in right knee; M79.671 Pain in right foot; Z94.0 Kidney transplant status; I10 Essential (primary) hypertension; E78.00 Pure hypercholesterolemia, unspecified
CPT/HCPCS: 36415; 80053; 85025; 99283-25

== ENCOUNTER 2019-05-29 07:00 | Emergency (ER) | payer SELFPAY ==
[2019-05-29 07:28] VITALS: BMI 25.4
--- NOTE | 2019-05-29 08:28 | PDOC ---
History of Present Illness - General Chief Complaint: Headache Stated Complaint: HEADACHE Time Seen by Provider: 05/29/19 08:00 History Source: Patient Exam Limitations: No Limitations - History of Present Illness Initial Comments: 05/29/19 08:18 49-year-old male presents the emergency room with complaints of continual throbbing pressure to forehead relieved with Tylenol. Patient also states dizziness worsened in the a.m. hours for the past 4 days without visual changes , fever, chills, nausea, recent head injury. Patient with history of renal transplant 25 years ago along with hypertension and dyslipidemia. Patient denies history of headaches or vertigo. Patient states has had headaches with similar location and description before but never lasting 4 days Timing/Duration: reports: other Severity: Yes: mild Associated Symptoms: reports: other Past History - Travel Traveled outside of the country in the last 30 days: No Close contact w/someone who was outside of country & ill: No - Past Medical History Allergies/Adverse Reactions: Allergies Allergy/AdvReac Type Severity Reaction Status Date / Time shellfish derived Allergy Verified 05/29/19 07:25 Home Medications: Ambulatory Orders Azathioprine [Imuran] 50 mg PO DAILY 04/05/17 Cyclosporine [Sandimmune] 50 mg PO BID 04/05/17 Prednisone 5 mg PO DAILY 04/05/17 Nifedipine ER [Procardia Xl -] 30 mg PO DAILY 05/25/18 Allopurinol [Zyloprim -] 100 mg PO DAILY 07/17/18 Rosuvastatin [Crestor -] 10 mg PO DAILY 02/01/19 Anemia: No Asthma: No Cancer: No Cardiac Disorders: No COPD: No CHF: No Dementia: No Diabetes: No GI Disorders: No Disorders: Yes (Kidney transplant) HTN: Yes Hypercholesterolemia: Yes Liver Disease: No Seizures: No Thyroid Disease: No - Surgical History Abdominal Surgery: Yes (HERNIA, TESTICULAR) Appendectomy: No Cardiac Surgery: No Cholecystectomy: No Lung Surgery: No Neurologic Surgery: No Orthopedic Surgery: No - Immunization History Immunization Up to Date: Yes - Psycho Social/Smoking Cessation Hx Smoking History: Never smoked Have you smoked in the past 12 months: No Information on smoking cessation initiated: No Hx Alcohol Use: No Drug/Substance Use Hx: No Patient Lives Alone: No Lives with/in: spouse/SO Neuro Specific PMHX - Complaint Specific PMHX Migraine: No Review of Systems - Review of Systems Able to Perform ROS?: Yes Constitutional: No: Symptoms Reported HEENTM: No: Symptoms Reported Respiratory: No: Symptoms reported Cardiac (ROS): Yes: Lightheadedness ABD/GI: No: Symptoms Reported : No: Symptoms Reported Musculoskeletal: No: Symptoms Reported Integumentary: No: Symptoms Reported Neurological: Yes: Headache, Dizziness Endocrine: No: Symptoms Reported Hematologic/Lymphatic: No: Symptoms Reported *Physical Exam - Vital Signs Last Vital Signs Temp Pulse Resp BP Pulse Ox 98.5 F 85 17 125/84 98 05/29/19 07:26 05/29/19 07:26 05/29/19 07:26 05/29/19 07:26 05/29/19 07:26 - Physical Exam General Appearance: Yes: Nourished, Appropriately Dressed. No: Apparent Distress HEENT: positive: EOMI, JUSTIN. negative: Pale Conjunctivae Neck: positive: Normal Thyroid Respiratory/Chest: positive: Lungs Clear, Normal Breath Sounds. negative: Respiratory Distress, Accessory Muscle Use Cardiovascular: positive: Regular Rhythm, Regular Rate. negative: Murmur Gastrointestinal/Abdominal: positive: Soft. negative: Tenderness Extremity: positive: Normal Inspection. negative: Pedal Edema Integumentary: positive: Normal Color, Warm, Moist Neurologic: positive: Motor Strength 5/5 (Ambulatory), Other (Negative Hallpike' s , negative subjective complaints of dizziness during exam) Heart Score/ECG Review - ECG Intrepretation Rhythm: Regular Rhythm (nsr at 60, inreval reg, no st elevation) ED Treatment Course - LABORATORY CBC & Chemistry Diagram: 05/29/19 08:10 05/29/19 08:10 - RADIOLOGY Radiology Studies Ordered: Category Date Time Status HEAD CT WITHOUT CONTRAST [CT] Stat CT Scan 05/29/19 08:01 Ordered Medical Decision Making - Medical Decision Making 05/29/19 08:33 Chief complaint: Throbbing pressure to forehead for the past 4 days relieved with Tylenol. Patient also with intermittent dizziness worsened in a.m. hours. No other complaints Exam: No neurofocal deficits vital signs stable plan: EKG, CBC, chemistry, urinalysis cardiac profile and head CT ordered 05/29/19 08:[address] negative for acute intracranial pathology. Labs pending. Patient offered Tylenol for headache but refused stating headache is mild 05/29/19 09:11 Laboratory Tests 05/29/19 05/29/19 08:10 08:10 WBC 9.2 Hgb 12.8 Hct 38.2 Absolute Neuts (auto) 5.0 Sodium 139 Potassium 4.4 Chloride 107 Carbon Dioxide 26 Anion Gap 7 L BUN 13.4 Creatinine 1.4 H Random Glucose 99 AST 25 ALT 24 Troponin I < 0.02 05/29/19 09:32 Laboratory Tests 05/29/19 08:33 Urine Protein 1+ H Urine Glucose (UA) Negative Urine Ketones Negative Urine Blood Negative Urine Nitrite Negative Urine Bilirubin Negative Ur Leukocyte Esterase Negative Urine WBC (Auto) 0 Urine RBC (Auto) 1 Urine Casts (Auto) 2 Patient will be discharged home with recommendations to take Tylenol for pain and Claritin as needed for nasal congestion and sinus pressure Discharge - Discharge Information Problems reviewed: Yes Clinical Impression/Diagnosis: Headache Condition: Good Disposition: HOME - Follow up/Referral - Patient Discharge Instructions Patient Printed Discharge Instructions: DI for Headache Additional Instructions: Please take Tylenol as needed for discomfort. You may take Tylenol 10 mg as needed for nasal congestion or sinus pressure. Please continue to follow-up with your doctors and take your medication otherwise as scheduled. - Post Discharge Activity
[2019-05-29 08:57] LABS: BASO % 0.9 % (0-2.0); EOS % 1.1 % (0-4.5); HEMATOCRIT 38.2 % (35.4-49); HEMOGLOBIN 12.8 GM/dL (11.7-16.9); LYMPH % 35.5 % (8-40); MCH 32.1 pg (25.7-33.7); MCHC 33.5 g/dl (32.0-35.9); MEAN CELL VOLUME 95.8 fl (80-96); MEAN PLT VOLUME 10.7 fl (7.5-11.1); MONO % 8.3 % (3.8-10.2); NEUT % 54.2 % (42.8-82.8); PLATELET COUNT 262 K/MM3 (134-434); RBC 3.99 M/mm3 (4.00-5.60); RDW 15.4 % (11.9-15.9); WHITE BLOOD COUNT 9.2 K/mm3 (4.0-10.0)
[2019-05-29 09:07] LABS: ALBUMIN 3.8 g/dl (3.4-5.0); ALK PHOS 89 U/L (45-117); ANION GAP 7 MMOL/L (8-16); BILIRUBIN,TOTAL 0.4 mg/dL (0.2-1); BLOOD UREA NITROGEN 13.4 mg/dL (7-18); CALCIUM 9.2 mg/dL (8.5-10.1); CHLORIDE 107 mmol/L (98-107); CO2 26 mmol/L (21-32); CREATININE 1.4 mg/dL (0.55-1.3); GLUCOSE,RANDOM 99 mg/dL (74-106); POTASSIUM 4.4 mmol/L (3.5-5.1); SGOT/AST 25 U/L (15-37); SGPT/ALT 24 U/L (13-61); SODIUM 139 mmol/L (136-145); TOT PROT 7.7 g/dl (6.4-8.2)
[2019-05-29 09:21] LABS: EPI CELLS 0.5 /HPF (0-5/HPF); HYALINE CASTS 2 /lpf (0-8); URINE APPEARANCE CLEAR; URINE BACTERIA 1.2 /hpf (NEGATIVE); URINE BILIRUBIN NEGATIVE (NEGATIVE); URINE COLOR YELLOW; URINE GLUCOSE (UA) NEGATIVE (NEGATIVE); URINE KETONE NEGATIVE (NEGATIVE); URINE LEUK ESTERASE NEGATIVE (NEGATIVE); URINE NITRITE NEGATIVE (NEGATIVE); URINE PROTEIN 1+ (NEGATIVE); URINE RBC 1 /hpf (0-4); URINE UROBILINOGEN 0.2 mg/dL (0.2-1.0); URINE WBC 0 /hpf (0-5)
[2019-05-29 09:41] VITALS: BP 132/97; PULSE 73; TEMP 98
--- NOTE | 2019-05-29 15:07 | EKG ---
Test Reason : Blood Pressure : / mmHG Vent. Rate : 060 BPM Atrial Rate : 060 BPM P-R Int : 144 ms QRS Dur : 096 ms QT Int : 434 ms P-R-T Axes : 044 -39 011 degrees QTc Int : 434 ms NORMAL SINUS RHYTHM LEFT AXIS DEVIATION ABNORMAL ECG NO PREVIOUS ECGS AVAILABLE Confirmed by AYUSH PHELAN MD ([id number]) on 05/29/2019 3:06:44 PM Referred By: Confirmed By:AYUSH PHELAN MD
== END 2019-05-29 09:52 | disposition home or self-care (01) ==
LOC: JER 07:00
DX: R51 Headache (principal); J34.89 Other specified disorders of nose and nasal sinuses; I10 Essential (primary) hypertension; E78.5 Hyperlipidemia, unspecified; Z94.0 Kidney transplant status; Z91.013 Allergy to seafood
CPT/HCPCS: 36415; 70450-TC; 80053; 81003; 82550; 82962; 84484; 85025; 93005; 93010; 99282-25